=== PATIENT | female | born 1965 | race Caucasian/White ===

== ENCOUNTER → 2018-02-01 16:20 | Outpatient (CLI) | payer MEDICAID, SELFPAY ==
--- NOTE | 2018-02-01 16:30 | RAD_ITS ---
STUDY: X-RAY - CERVICAL SPINE REASON FOR EXAM: Female, 52 years old. Patient fell. TECHNIQUE: 6 view(s) of the cervical spine were obtained. COMPARISON: None FINDINGS: Normal anterior atlantoaxial articulation. Normal odontoid process. Normal cervical lordosis. Narrowing of the C5-C6, C6-C7 disc spaces with narrowing of the left intervertebral foramen at the C6-C7 level. No acute fractures The soft tissue structures are unremarkable. RAD/Cerv Spine 4 or 5 Views IMPRESSION: Intervertebral osteochondrosis at C5-C6 and C6-C7 with an uncinate spur encroaching on the left intervertebral foramen at the C6-C7 level. No fracture Electronically Signed: Daryl Velez, at 3:39 EDT Tel , Service support ,
--- NOTE | 2018-02-01 16:37 | RAD_ITS ---
STUDY: X-RAY - LUMBAR SPINE REASON FOR EXAM: Female, 52 years old. Patient fell TECHNIQUE: 6 view(s) of the lumbar spine were obtained. COMPARISON: None FINDINGS: There is a mild lumbar scoliosis with convexity to the right. There are no acute fractures or dislocations and minimal disc space narrowing at L3-4 and L4-5. The surrounding soft tissues are within normal limits. RAD/L/S Spine Min 4 Views IMPRESSION: Minimal degenerative changes of the L3-4 and L4-5 disc space levels. No fractures Electronically Signed: Daryl Velez, at 3:43 EDT Tel , Service support ,
== END ==
PROVIDERS: Family Provider Internal Medicine; PCP Internal Medicine; Visit Provider Chiropractor
DX: S33.5XXA Sprain of ligaments of lumbar spine, initial encounter (principal); S13.4XXA Sprain of ligaments of cervical spine, initial encounter
CPT/HCPCS: 72050; 72110

== ENCOUNTER 2019-09-28 14:00 | Outpatient (RCR) | payer MEDICAID, SELFPAY ==
--- NOTE | 2019-09-04 09:08 | HP.OTEVAL_ITS ---
Patient's Visit Information KARISSA THOMPSON is a 54 year old F, referred to Occupational Therapy by Nolan Falk Jr., MD, with a diagnosis of rheumatoid arthritis. Date of Evaluation: 08/31/19 Occupational Therapist: Ladonna De Jesus, TIN/Andry, CHT - Subjective Subjective: This 54 year old female was see for OT eval with new dx of RA on 2018. Pt states left thumb is more painful in the last 2-3 weeks. 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 - ADLs Kitchen: Chop with knife, Peel fruits & vegetables, Open jars, Open bottle caps Household: Sweep/mop, Wash windows - Pain bilateral hands 0 Pain Intensity Range: 0, 4 - ROM Opposition: right 10 left 10 ROM Comments: pt demo full composite fist bilateral hands- - Strength [place] Operator: right 35# left 18# painful with resistive testing Lateral Pinch: right 10# left 10# Tripod Pinch: right 10# left 8# Strength Comments: pain with left thumb resistive testing - Sensation Sensation Comments: denies - Quick DASH-Disab of Arm,Shoulder& Hand Quick DASH Score: 43.3325 - Goals Goal:: pt will report pain no greater than 2/10 with use of bilateral hands with ADLs and IADLS with ad. eq. and use of joint protection by d/c Goal:: Pt will demonstrate understanding of joint protection and adaptive equipment to decrease joint stress while performing ADL and IADLs tasks by d/c Goal:: PT will demo understanding of using modalities as heat, or cool water to mtg her symptoms of pain and sorness of her joints, pt given information on home products as paraffin bath or micowaveable rice pack. pt demo understanding by end of 1st session - Rehabilitation General Assessment: Pt demo bilateral hand weakness and limitations with performing her ADls, and IADL tasks. Pt would benefit from skilled OT services 2-3 x week for 3-4 weeks- pt does have a distance to drive and would be willing to attend therapy services 1-2x week for 3-4 weeks. Today therapist ed. pt on joint protection apolonia. as well as work modification. Pt was given handout and demo understanding and agree to POC. Rehabilitation Potential: Good - Anticipated Interventions Anticipated Interventions: A/AAROM/PROM, Strengthening, Modalities, Joint Protection/Energy Conservation, Ergonomic Education, Education re assistive Equipment, Home Program - Visit Plan Frequency: 2-3x /Week Duration: 2-4 Weeks TEXT: Thank you for the opportunity to evaluate your patient. For Medicare and Medicare HMO plans, please review the plan of care and approve it. It will need to be FAXED BACK to us at [phone] for Medicare purposes. Please let me know if there are questions or concerns regarding this plan of care. Physician Signature: Date:
--- NOTE | 2019-09-28 14:24 | HP.OTDCSUM ---
HP - OT D/C Summary It has been my pleasure to treat KARISSA THOMPSON under orders from Nolan Falk Jr., MD, for the diagnosis of rheumatoid arthritis for a total of 7 visit(s). Please see the following information for a summary of their discharge status. - Overall Improvement % Improvement: 30 - Objective Objective/Function: pt has been ed. on joint protection, ad. eq and work modification- pt cont. to have pain that ranges from 2-8/10. Pain is worse with use. 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 left lateral pinch 6# with pain. At this time therapy is rec'd pt to return to for further evaluation. - Goals Patient Goals: Decrease Pain, Use Hand/Wrist/Arm Normally Again Goal:: pt will report pain no greater than 2/10 with use of bilateral hands with ADLs and IADLS with ad. eq. and use of joint protection by d/c Goal:: Pt will demonstrate understanding of joint protection and adaptive equipment to decrease joint stress while performing ADL and IADLs tasks by d/c Goal:: PT will demo understanding of using modalities as heat, or cool water to mtg her symptoms of pain and sorness of her joints, pt given information on home products as paraffin bath or micowaveable rice pack. pt demo understanding by end of 1st session - Plan Plan: D/C - D/C Information Discharge Comments: therapy ed. pt on joint protection, ad. eq. and work modification to decrease joint stress with ADLs and IADLS and work tasks. pt cont. to have pain that prevents her from performing her occupations ind. Due to limited progress therapist rec'd pt return to . Pt d/c at this time If there are questions or concerns regarding this patient's occupational therapy, please fell free to call me at [phone]. Thank you for the referral of this patient. Sincerely, Ladonna De Jesus, OTR/L, CHT
== END 2019-09-28 19:00 | disposition home or self-care (01) ==
LOC: OT 14:00
PROVIDERS: Family Provider Internal Medicine; PCP Internal Medicine; Referring Provider Internal Medicine Rheumatology; Visit Provider Internal Medicine Rheumatology
DX: M05.79 Rheumatoid arthritis with rheumatoid factor of multiple sites without organ or systems involvement (principal); M06.322 Rheumatoid nodule, left elbow; R53.83 Other fatigue; R76.8 Other specified abnormal immunological findings in serum; M54.9 Dorsalgia, unspecified; M89.9 Disorder of bone, unspecified; M94.9 Disorder of cartilage, unspecified; M25.511 Pain in right shoulder; M25.512 Pain in left shoulder; G89.29 Other chronic pain; M75.21 Bicipital tendinitis, right shoulder; M75.22 Bicipital tendinitis, left shoulder; M25.531 Pain in right wrist; M25.532 Pain in left wrist; M79.641 Pain in right hand; M79.642 Pain in left hand; M19.041 Primary osteoarthritis, right hand; M19.042 Primary osteoarthritis, left hand; M51.36 Other intervertebral disc degeneration, lumbar region; M50.30 Other cervical disc degeneration, unspecified cervical region; Z79.1 Long term (current) use of non-steroidal anti-inflammatories (NSAID); Z79.52 Long term (current) use of systemic steroids; Z79.899 Other long term (current) drug therapy
CPT/HCPCS: 97110; 97166; 97530

== ENCOUNTER 2022-12-27 20:05 | Inpatient (IN) | payer MEDICARE, MEDICAID, SELFPAY ==
[2022-12-27 20:06] VITALS: BP 166/86; PULSE 96; RESP 15; TEMP 37.2; O2SAT 98; BMI 34.7
--- NOTE | 2022-12-27 20:36 | EDS_ITS ---
HPI <DANIEL Navarro - Last Filed: 12/27/22 20:55> History of Present Illness Chief Complaint: Abscess Narrative Narrative: 57-year-old female had a pimple in her right pubic area that she popped about 6 days ago. The next day it started to become red and painful. It's been draining bloody fluid. She has had fevers of 100 - 101 ?F over the last few days. She is on methotrexate for history of rheumatoid arthritis. She is not diabetic. [facility] <DANIEL Navarro - Last Filed: 12/27/22 20:55> [facility] Medical History (Updated 12/27/22 @ 21:[address] Rubin Mejia MD) Depression Allergy/AdvReac Type Severity Reaction Status Date / Time amitriptyline AdvReac PT UNSURE Verified 12/27/22 20:11 OF REACTION codeine AdvReac Rash Verified 12/27/22 20:10 sertraline [From Zoloft] AdvReac Upset Verified 12/27/22 20:10 Stomach Social History (System 06/13/19 @ 10:37 by Lakesha Rodney) Smoking Status: Never smoker ROS <DANIEL Navarro - Last Filed: 12/27/22 20:55> ROS ED ROS Narrative Constitutional: Positive for fever, malaise. CVS: Negative for palpitations, chest pain. Respiratory: Negative for shortness of breath. GI: Negative for abdominal pain, nausea, vomiting. Skin: Positive for abscess. Musc: Negative for joint pain, swelling, trauma. Heme: Negative for easy bruising, bleeding, lymphadenopathy. EXAM <DANIEL Navarro - Last Filed: 12/27/22 20:55> Physical Exam Narrative Exam Narrative: CONST: Patient sitting in no acute distress. EYES: Normal inspection. NECK: Normal inspection. RESP: No respiratory distress, CTAB. CVS: Regular rate and rhythm, no murmur, no gallop. ABD: Soft and nontender, no guarding or rebound. SKIN: Right labia majora has soft tissue swelling and is diffusely red. There is a small opening at the superior aspect that drains yellow bloody fluid with palpation. The top feels fluctuant but extending down the labia majora is indurated. The erythema and induration extends all the way back to the perineum onto her right mid-buttock. No necrosis, no crepitus, no lymphangitic streaking. EXTREMITIES: Normal appearance, no pedal edema. NEURO: Oriented x4. PSYCH: Normal affect. Const Vital Signs: 12/27/22 20:06 Temperature 98.9 F Temperature Source Temporal Pulse Rate 96 Respiratory Rate 15 Blood Pressure 166/86 H Blood Pressure Mean 112 Pulse Ox 98 Oxygen Delivery Method Room Air <Dr. Rubin Mejia MD - Last Filed: 12/27/22 21:59> Physical Exam Const Vital Signs: 12/27/22 20:06 Temperature 98.9 F Temperature Source Temporal Pulse Rate 96 Respiratory Rate 15 Blood Pressure 166/86 H Blood Pressure Mean 112 Pulse Ox 98 Oxygen Delivery Method Room Air MDM <DANIEL Navarro - Last Filed: 12/27/22 20:55> MDM MDM Narrative Medical decision making narrative: Patient popped a pimple in her right pubic area and now has developed an abscess in the right labia majora with overlying cellulitis that extends all the way back to the perineum onto the right buttock. She also reports having a fever over the last few days. She appears well and nontoxic. She has unremarkable vital signs and is afebrile here. With the extent of the cellulitis labs and blood cultures will be obtained along with a CT to evaluate the extent of the abscess. She was given a dose of IV Unasyn, morphine, and Zofran. Labs are pending but plan will likely be for admission. Case was signed out to my attending. Differential: Cellulitis, abscess, Fidelia's gangrene Lab Data Attestation: I reviewed the patient's lab results. Labs: Laboratory Results - last 24 hr 12/27/22 12/27/22 20:50 20:50 WBC 16.0 H RBC 4.81 Hgb 14.0 Hct 41.3 MCV 85.9 MCH 29.1 MCHC 33.9 RDW Std Deviation 37.5 RDW Coeff of Kelsy 12.2 Plt Count 254 MPV 9.8 Immature Gran % (Auto) 0.400 Neut % (Auto) 85.2 H Lymph % (Auto) 7.0 L Harper % (Auto) 7.1 Eos % (Auto) 0.1 Baso % (Auto) 0.2 Absolute Neuts (auto) 13.6 H Absolute Lymphs (auto) 1.12 Nucleated RBC % 0 Sodium 133 L Potassium 3.6 Chloride 99 Carbon Dioxide 24.0 Anion Gap 10 BUN 25 H Creatinine 1.28 H Estim Creat Clear Calc 41.87 Est GFR (MDRD) Af Amer 55 L Est GFR (MDRD) Non-Af 46 L BUN/Creatinine Ratio 19.5 Glucose 186 H Calcium 9.2 Radiography Diagnostic Testing: Clinical Impression(s) from Imaging Studies Lower Extremity CT 12/27/22 20:44 IMPRESSION: Medial right buttock soft tissue inflammatory changes and skin thickening suggesting cellulitis. No drainable abscess. Electronically Signed: Hunter Hamm MD at 21:46 EST , <Dr. Rubin Mejia MD - Last Filed: 12/27/22 21:59> [facility] MDM Narrative Medical decision making narrative: Patient popped a pimple in her right pubic area and now has developed an abscess in the right labia majora with overlying cellulitis that extends all the way back to the perineum onto the right buttock. She also reports having a fever over the last few days. She appears well and nontoxic. She has unremarkable vital signs and is afebrile here. With the extent of the cellulitis labs and blood cultures will be obtained along with a CT to evaluate the extent of the abscess. She was given a dose of IV Unasyn, morphine, and Zofran. Labs are pending but plan will likely be for admission. Case was signed out to my attending. Differential: Cellulitis, abscess, Fidelia's gangrene I have personally performed a face to face assessment of the patient and have reviewed the YEIMI Note. I performed a substantive portion of the visit including all aspects of the following. My hernandez findings include: History is [57-year-old female history of rheumatoid arthritis. Had a pimple on her right groin region last week. Expressed pus from that. Initially he thought it was getting better now is more red and swollen. With fever. Reportedly not diabetic.] Exam is [middle-aged female vital signs stable afebrile. She does not look septic or toxic. No distress. H EENT exam unremarkable. Lungs clear. Heart regular rhythm. Abdomen soft nontender. Moving all 4 extremities. Her right groin medial proximal thigh and right buttock is swollen, tender and red consistent with cellulitis. There is no sri pus at this time. Tender to palpation. No subcu air. No crepitance. No gangrene or necrotic skin. She has full range of motion to her right hip. There is no involvement in the medial or distal thigh or lower leg.] Medical Decision Making [patient started on IV Unasyn. Labs been obtained and a CAT scan. She will need admitted. I have already spoken to the hospitalist about admission. The CAT scan does not show any drainable abscess. At this time there no sign of necrotizing fasciitis.] Other additions or changes: [None] History & Record Review Discussion w/independent historian: Patient Additional record(s) reviewed:: Prior inpatient record, Prior outpatient record, Prior ED visit and Prior labs Lab Data Lab results narrative: BC shows elevated white count of 16,000. H&H 14 and 41. Electrolytes sodium 133. Gap of 10 BUN 25 creatinine 1.28. Glucose 186. She has no history of diabetes. CAT scan of the right hip region buttock and soft tissue shows cellulitis and soft tissue swelling per the radiologist and reviewed by me but no drainable abscess. Therefore no I&D will be attempted at this time. Labs: Laboratory Results - last 24 hr 12/27/22 12/27/22 20:50 20:50 WBC 16.0 H RBC 4.81 Hgb 14.0 Hct 41.3 MCV 85.9 MCH 29.1 MCHC 33.9 RDW Std Deviation 37.5 RDW Coeff of Kelsy 12.2 Plt Count 254 MPV 9.8 Immature Gran % (Auto) 0.400 Neut % (Auto) 85.2 H Lymph % (Auto) 7.0 L Harper % (Auto) 7.1 Eos % (Auto) 0.1 Baso % (Auto) 0.2 Absolute Neuts (auto) 13.6 H Absolute Lymphs (auto) 1.12 Nucleated RBC % 0 Sodium 133 L Potassium 3.6 Chloride 99 Carbon Dioxide 24.0 Anion Gap 10 BUN 25 H Creatinine 1.28 H Estim Creat Clear Calc 41.87 Est GFR (MDRD) Af Amer 55 L Est GFR (MDRD) Non-Af 46 L BUN/Creatinine Ratio 19.5 Glucose 186 H Calcium 9.2 Radiography Diagnostic Testing: Clinical Impression(s) from Imaging Studies Lower Extremity CT 12/27/22 20:44 IMPRESSION: Medial right buttock soft tissue inflammatory changes and skin thickening suggesting cellulitis. No drainable abscess. Electronically Signed: Hunter Hamm MD at 21:46 EST Reading Location ID and State: [facility] / [place] , Service support , Management Discussion w/another healthcare provider: Hospitalist Discharge Plan Triage Chief Complaint: Abscess ED Midlevel Provider: Dinora Cameron ED Provider: Rubin Mejia Dx/Rx/DC Orders Clinical Impression: Cellulitis of groin, right, Leukocytosis Primary Care Provider: Christine Zapata Referrals: Christine Zapata MD [Primary Care Provider] - Disposition Disposition: Acute Care Hospital [facility]
--- NOTE | 2022-12-27 20:44 | CT_ITS ---
EXAM: CT RIGHT LOWER EXTREMITY WITHOUT INTRAVENOUS CONTRAST CLINICAL INDICATION: abscess TECHNIQUE: Helically acquired images were obtained of the right lower extremity without intravenous contrast. 2-D reformats were performed by the technologist. This CT exam was performed using one or more of the following dose reduction techniques: automated exposure control, adjustment of the mA and/or kV according to patient size, and/or use of iterative reconstruction technique. This report was created using [employer] report generation technology. CONTRAST: IV 100mL Isovue-370 RADIATION DOSE: CTDIvol = 28.21 mGy, DLP = 1042.72 mGy-cm COMPARISON: None. FINDINGS: BONES/JOINTS: Unremarkable. No acute fracture. No subluxation. Normal alignment. Preservation of the joint space. No sclerotic or destructive changes. SOFT TISSUES: Medial right buttock soft tissue inflammatory changes and skin thickening suggesting cellulitis. No drainable abscess. No soft tissue swelling or gas. No radiopaque foreign body. LYMPH NODES: Right inguinal adenopathy. OTHER FINDINGS: The appendix is visualized and is normal. CT/Extremity Lower WITH Contrast IMPRESSION: Medial right buttock soft tissue inflammatory changes and skin thickening suggesting cellulitis. No drainable abscess. Electronically Signed: Hunter Hamm MD at 21:46 EST ,
[2022-12-27 20:55] LABS: Absolute Lymphocyte Count 1.12 X10^3/uL (0.83-4.51); Absolute Neutrophil Count 13.6 X10^3/uL (2.0-7.7); Basophil# 0.03 X10^3/uL; Basophil% 0.2 % (0-1); Eosinophil# 0.02 X10^3/uL; Eosinophils% 0.1 % (0-5); Hematocrit 41.3 % (37-47); Lymphocyte # 1.12 X10^3/ul (0.83-4.51); Mean Corp Hgb Conc 33.9 g/dL (32-36); Mean Corpuscular Hgb 29.1 pg (27.0-32.0); Mean Corpuscular Volume 85.9 fL (81-99); Mean Platelet Vol. 9.8 fl (6.2-12.0); Monocyte# 1.13 X10^3/uL; Monocyte% 7.1 % (0-10); NRBC Flagged by Analyzer 0 % (0-5); Neutrophil # 13.59 X10^3/uL (2.7-7.7); Neutrophil % 85.2 % (47-70); Platelet Count 254 K/mm3 (150-450); RBC Distribution Width CV 12.2 % (11.6-14.6); RBC Distribution Width SD 37.5 fl (35.1-43.9); Red Blood Count 4.81 M/mm3 (4.2-5.4)
[2022-12-27] MEDS: 0.9% Normal Saline 1,000 ML 999 ML IV (20:59)
[2022-12-27] MEDS: Morphine 4 MG/ML Syringe IV (20:59)
[2022-12-27] MEDS: Ondansetron 4 MG/2 ML Vial IV (20:59)
[2022-12-27 21:08] LABS: Anion Gap 10 (5-15); BUN 25 mg/dL (7-18); BUN/Creat Ratio 19.5 RATIO (10-20); Calcium,Total 9.2 mg/dL (8.5-10.1); Chloride 99 mmol/L (98-107); Creatinine, Serum 1.28 mg/dL (0.55-1.02); EST Glomerular Filtration Rate 46 mL/min (>60); Est Glom Filt Rate - Afr Amer 55 mL/min (>60); Estimated Creatinine Clearance 41.87 ml/min; Glucose 186 mg/dL (74-106); Potassium 3.6 mmol/L (3.5-5.1); Sodium Level 133 mmol/L (136-145)
[2022-12-27] MEDS: Lidocaine 1% (20 ml mdv) 20 ML Vial 10 ML INFILT (21:25)
--- NOTE | 2022-12-27 22:01 | PCM.HP.STD ---
HPI - General General Date of Admission: 12/27/22 Date of Service: 12/27/22 Chief Complaint: swelling of right HPI Narrative KARISSA THOMPSON, is a 57 F with a significant history of rheumatoid arthritis on methotrexate; and degenerative disc disease of the cervical and lower back areas who presents to the emergency department with swelling of her right medial hip. Patient reported about 5 days ago she noticed a pimple at the right medial hip. She squeezed opened the pimple. The next day she began to have fatigue, fever (with highest temperature of 102 Fahrenheit); chills; body aches; diarrhea (which has not resolved). She had anorexia but that has improved. Also she has erythema and pain at the right medial hip. [facility] Medical History Anxiety Depression Home Medications bupropion HCl 150 mg 24 hr tablet, extended release 150 mg PO DAILY Check with primary doctor 12/27/22 [History Last Taken 12/24/22] cholecalciferol (vitamin D3) 25 mcg (1,000 unit) tablet 25 mcg PO DAILY Check with primary doctor 12/27/22 [History Last Taken 12/24/22] folic acid 1 mg tablet 1 mg PO DAILY Check with primary doctor 12/27/22 [History Last Taken 12/24/22] methotrexate sodium 2.5 mg tablet 22.5 mg PO QWEEK Check with primary doctor 12/27/22 [History Last Taken 12/24/22] omeprazole 40 mg capsule,delayed release 40 mg PO DAILY Check with primary doctor 12/27/22 [History Last Taken 12/24/22] paroxetine HCl 40 mg tablet 40 mg PO DAILY Check with primary doctor 12/27/22 [History Last Taken 12/24/22] Allergy/AdvReac Type Severity Reaction Status Date / Time amitriptyline AdvReac PT UNSURE Verified 12/27/22 20:11 OF REACTION codeine AdvReac Rash Verified 12/27/22 20:10 sertraline [From Zoloft] AdvReac Upset Verified 12/27/22 20:10 Stomach Family History Other Diabetes Heart disease Surgical History Hx of cholecystectomy Social History Smoking Status: Never smoker ROS ROS Narrative Pertinent positives and pertinent negatives as noted in HPI. All other systems were reviewed and are negative Vital Signs Vital Signs Vital Signs: 12/27/22 20:06 Temperature 98.9 F Temperature Source Temporal Pulse Rate 96 Respiratory Rate 15 Blood Pressure 166/86 H Blood Pressure Mean 112 Pulse Ox 98 Oxygen Delivery Method Room Air Weight Weight: 91.943 kg Body Mass Index (BMI) 34.7 Physical Exam Narrative Physical exam: General: Well-nourished, well-developed. Head: Normocephalic, atraumatic, no tenderness Eyes: Vision is grossly intact. EOMI ENT, no trauma, moist mucous membranes, no rhinorrhea Neck: Nontender, No thyromegaly. CVS: Regular rate and rhythm. S1-S2 present. No murmur, gallop or rub. Respiratory : clear to auscultation bilaterally, chest wall nontender, no wheezing Abdomen: Soft, nontender, nondistended, normal bowel sounds, no masses : Vaginal area without any erythema, swelling or induration. Back: Nontender, no CVA tenderness. Extremities: Nontender full range of motion, no trauma Skin: Erythema and induration at right medial thigh extending to right gluteal area. No erythema and induration at left medial thigh. Neuro: Alert, oriented, cranial nerves II through XII grossly intact. Psychiatry: Normal mood. Normal affect. Not depressed. Not anxious. Results Lab / Micro Data Result Diagrams: 12/27/22 20:50 12/27/22 20:50 Labs: Laboratory Results - last 24 hr 12/27/22 20:50: WBC 16.0 H, RBC 4.81, Hgb 14.0, Hct 41.3, MCV 85.9, MCH 29.1, MCHC 33.9, RDW Std Deviation 37.5, RDW Coeff of Kelsy 12.2, Plt Count 254, MPV 9.8, Immature Gran % (Auto) 0.400, Neut % (Auto) 85.2 H, Lymph % (Auto) 7.0 L, [place] % (Auto) 7.1, Eos % (Auto) 0.1, Baso % (Auto) 0.2, Absolute Neuts (auto) 13.6 H, Absolute Lymphs (auto) 1.12, Nucleated RBC % 0 12/27/22 20:50: Sodium 133 L, Potassium 3.6, Chloride 99, Carbon Dioxide 24.0, Anion Gap 10, BUN 25 H, Creatinine 1.28 H, Estim Creat Clear Calc 41.87, Est GFR (MDRD) Af Amer 55 L, Est GFR (MDRD) Non-Af 46 L, BUN/Creatinine Ratio 19.5, Glucose 186 H, Calcium 9.2 Radiology Impression Lower Extremity CT 12/27/22 20:44 IMPRESSION: Medial right buttock soft tissue inflammatory changes and skin thickening suggesting cellulitis. No drainable abscess. Electronically Signed: Hunter Hamm MD at 21:46 EST , Assessment & Plan Assessment/Plan (1) Cellulitis of groin, right: (2) Leukocytosis: PLAN: Plan Cellulitis of right groin Impression of lower extremity CT by radiologist: Medial right buttock soft tissue inflammatory changes and skin thickening suggesting cellulitis. No drainable abscess. Lower extremity CT was visualized independent interpreted I agree with the interpretation. Discussed the case with general surgery who will follow. Initially Unasyn ordered. By general surgery recommendation will add vancomycin to regimen. Tylenol and oxycodone as needed for pain. Bowel protocol and antiemetics in place. CBC reviewed showed white count of 16,000. Trend. CKD stage IIIa Creatinine on presentation was 1.28. Review of community records shows stable creatinine. Of note on 06/25/2022 her creatinine was 1.05. On 04/07/2022 creatinine was 1.1 and on 10/07/2022 creatinine was 1.16. Counseled records reviewed shows blood pressure has stable creatinine. Stable Hyponatremia: mild with sodium of 133 on presentation. Glucose is only mildly elevated. Trend DVT prophylaxis: Subcutaneous Lovenox ordered. Charges/Coding Visit Charges Inpatient E&M: 48500 Init Hosp L3
[2022-12-27 22:21] VITALS: BP 138/78; PULSE 8; RESP 16; TEMP 36.6; O2SAT 97
[2022-12-27 22:32] VITALS: BMI 36.5
[2022-12-27 22:46] VITALS: BP 119/66; PULSE 75; RESP 17; TEMP 36.6; O2SAT 96
--- NOTE | 2022-12-27 23:36 | PCM.RX.CS ---
Consult Pharmacy has been consulted to manage selected antiobiotic: Vancomycin Type of Consult: New start Suspected Infection: Skin/Soft tissue Prior Doses of Antibiotics Received/Current Regimen: Medications Vancomycin HCl 2,000 mg/ (Sodium Chloride) 540 mls @ 250 mls/hr IV X1 ONE Stop: 12/28/22 01:09 Last Admin: 12/27/22 23:22 Dose: 250 mls/hr Vancomycin HCl (Vancomycin) 1,000 mg in 200 mls @ 200 mls/hr IV Q12H LUZ MARIA Labs: Sodium 133 mmol/L (136-145) L 12/27/22 20:50 Potassium 3.6 mmol/L (3.5-5.1) 12/27/22 20:50 Chloride 99 mmol/L (98-107) 12/27/22 20:50 Carbon Dioxide 24.0 mmol/L (21.0-32.0) 12/27/22 20:50 Anion Gap 10 (5-15) 12/27/22 20:50 BUN 25 mg/dL (7-18) H 12/27/22 20:50 Creatinine 1.28 mg/dL (0.55-1.02) H 12/27/22 20:50 Est GFR (MDRD) Af Amer 55 mL/min (>60) L 12/27/22 20:50 Est GFR (MDRD) Non-Af 46 mL/min (>60) L 12/27/22 20:50 BUN/Creatinine Ratio 19.5 RATIO (10-20) 12/27/22 20:50 Glucose 186 mg/dL (74-106) H 12/27/22 20:50 Weight used for dosin.5 kg Estimated Creatinine Clearance: 50.6 Goal Trough: 15-20 mcg/mL Pharmacy Plan for Drug Dosing: Pharmacy Service will continue to monitor and adjust dosing as required. Follow-Up Labs: Trough Vancomycin Labs to be done on [date and time ordered]: 12/29/22 @1100
[2022-12-28 01:12] VITALS: O2SAT 97
[2022-12-28 04:46] VITALS: BP 103/51; PULSE 72; RESP 16; TEMP 37.1; O2SAT 97
[2022-12-28 06:30] LABS: Absolute Lymphocyte Count 1.16 X10^3/uL (0.83-4.51); Basophil# 0.02 X10^3/uL; Basophil% 0.2 % (0-1); Eosinophil# 0.09 X10^3/uL; Eosinophils% 0.9 % (0-5); Hematocrit 34.1 % (37-47); Hemoglobin 11.5 g/dL (12.0-15.0); Lymphocyte # 1.16 X10^3/ul (0.83-4.51); Lymphocyte % 11.3 % (19-41); Mean Corp Hgb Conc 33.7 g/dL (32-36); Mean Corpuscular Hgb 29.1 pg (27.0-32.0); Mean Corpuscular Volume 86.3 fL (81-99); Mean Platelet Vol. 10.2 fl (6.2-12.0); Monocyte# 1.03 X10^3/uL; NRBC Flagged by Analyzer 0 % (0-5); Neutrophil # 7.96 X10^3/uL (2.7-7.7); Neutrophil % 77.3 % (47-70); Platelet Count 190 K/mm3 (150-450); RBC Distribution Width CV 12.2 % (11.6-14.6); RBC Distribution Width SD 38.2 fl (35.1-43.9); Red Blood Count 3.95 M/mm3 (4.2-5.4); White Blood Count 10.3 K/mm3 (4.4-11.0)
[2022-12-28 06:57] LABS: Anion Gap 7 (5-15); BUN 18 mg/dL (7-18); BUN/Creat Ratio 19.8 RATIO (10-20); Calcium,Total 8.2 mg/dL (8.5-10.1); Chloride 104 mmol/L (98-107); Creatinine, Serum 0.91 mg/dL (0.55-1.02); EST Glomerular Filtration Rate 68 mL/min (>60); Est Glom Filt Rate - Afr Amer 82 mL/min (>60); Estimated Creatinine Clearance 53.95 ml/min; Glucose 106 mg/dL (74-106); Potassium 3.9 mmol/L (3.5-5.1); Sodium Level 136 mmol/L (136-145)
--- NOTE | 2022-12-28 07:09 | CON.PCM.SX_ITS ---
Assessment & Plan Assessment/Plan (1) Abscess, gluteal, right: PLAN: Plan We will plan for incision and drainage at bedside. Patient does have a small necrotic area about 3 mm in size. Discussed procedure including risk/benefits with patient she was agreeable to proceed. Patient is aware we may need further surgery in the future depending if this improves with just the I&D or if it begins to look worse patient may need to go to OR for incision and drainage or debridement. We will also add clindamycin to the antibiotics with the vancomycin/Zosyn. We will also obtain wound cultures during I&D. Kathy Anderson M.D. Pager: [phone] [facility] [address] [place] [address], Outpatient Pavilion, [address] [place] [address] Office: [phone] HPI Consult Data Date of Consult: 12/28/22 HPI Narrative HPI Narrative: KARISSA THOMPSON, is a 57 F who presents due to right gluteal cellulitis/pain. Patient states that she initially noticed it on Wednesday and was just a little pimple and then did continue to get worse. Patient CT abdomen pelvis did not show any obvious fluid collection in this area. Patient did have cellulitis. Patient had a white blood count of 16 on admit. Patient was started on Zosyn and vancomycin IV in the ER. Patient denies ever having previous abscesses. [facility] Medical History Anxiety Depression Home Medications bupropion HCl 150 mg 24 hr tablet, extended release 150 mg PO DAILY Check with primary doctor 12/27/22 [History Last Taken 12/24/22] cholecalciferol (vitamin D3) 25 mcg (1,000 unit) tablet 25 mcg PO DAILY Check with primary doctor 12/27/22 [History Last Taken 12/24/22] folic acid 1 mg tablet 1 mg PO DAILY Check with primary doctor 12/27/22 [History Last Taken 12/24/22] methotrexate sodium 2.5 mg tablet 22.5 mg PO QWEEK Check with primary doctor 12/27/22 [History Last Taken 12/24/22] omeprazole 40 mg capsule,delayed release 40 mg PO DAILY Check with primary doctor 12/27/22 [History Last Taken 12/24/22] paroxetine HCl 40 mg tablet 40 mg PO DAILY Check with primary doctor 12/27/22 [History Last Taken 12/24/22] Allergy/AdvReac Type Severity Reaction Status Date / Time amitriptyline AdvReac PT UNSURE Verified 12/27/22 20:11 OF REACTION codeine AdvReac Rash Verified 12/27/22 20:10 sertraline [From Zoloft] AdvReac Upset Verified 12/27/22 20:10 Stomach Family History Other Diabetes Heart disease Surgical History Hx of cholecystectomy Social History Smoking Status: Never smoker Physical Exam Const alert, oriented x3 and no apparent distress General Appearance: cooperative HEENT normocephalic Resp normal respiratory effort Cardio Rate: regular rate GI soft to palpation, non-tender and non-distended GI Narrative: Right medial gluteal/perineum area: Small area with necrotic tissue about 3 mm in size anterior/medial. Surrounding area of firm and erythematous, tender for most of the inferior right medial gluteal Extremity normal to inspection Skin Skin Narrative: See GI?right medial gluteal/perineal area Neuro CN's II-XII intact bilaterally Psych mental status grossly normal Lab / Micro Data Result Diagrams: 12/28/22 05:30 12/28/22 05:30 Labs: Laboratory Results - last 24 hr 12/27/22 20:50: WBC 16.0 H, RBC 4.81, Hgb 14.0, Hct 41.3, MCV 85.9, MCH 29.1, MCHC 33.9, RDW Std Deviation 37.5, RDW Coeff of Kelsy 12.2, Plt Count 254, MPV 9.8, Immature Gran % (Auto) 0.400, Neut % (Auto) 85.2 H, Lymph % (Auto) 7.0 L, Upson % (Auto) 7.1, Eos % (Auto) 0.1, Baso % (Auto) 0.2, Absolute Neuts (auto) 13.6 H, Absolute Lymphs (auto) 1.12, Nucleated RBC % 0 12/27/22 20:50: Sodium 133 L, Potassium 3.6, Chloride 99, Carbon Dioxide 24.0, Anion Gap 10, BUN 25 H, Creatinine 1.28 H, Estim Creat Clear Calc 41.87, Est GFR (MDRD) Af Amer 55 L, Est GFR (MDRD) Non-Af 46 L, BUN/Creatinine Ratio 19.5, Glucose 186 H, Calcium 9.2 12/28/22 05:30: WBC 10.3, RBC 3.95 L, Hgb 11.5 L, Hct 34.1 L, MCV 86.3, MCH 29.1, MCHC 33.7, RDW Std Deviation 38.2, RDW Coeff of Kelsy 12.2, Plt Count 190, MPV 10.2, Immature Gran % (Auto) 0.300, Neut % (Auto) 77.3 H, Lymph % (Auto) 11.3 L, Upson % (Auto) 10.0, Eos % (Auto) 0.9, Baso % (Auto) 0.2, Absolute Neuts (auto) 8.0 H, Absolute Lymphs (auto) 1.16, Nucleated RBC % 0 12/28/22 05:30: Sodium 136, Potassium 3.9, Chloride 104, Carbon Dioxide 25.0, Anion Gap 7, BUN 18, Creatinine 0.91, Estim Creat Clear Calc 53.95, Est GFR (MDRD) Af Amer 82, Est GFR (MDRD) Non-Af 68, BUN/Creatinine Ratio 19.8, Glucose 106, Calcium 8.2 L Radiology Impression Lower Extremity CT 12/27/22 20:44 IMPRESSION: Medial right buttock soft tissue inflammatory changes and skin thickening suggesting cellulitis. No drainable abscess. Electronically Signed: Hunter Hamm MD at 21:46 EST , Charges/Coding Visit Charges Inpatient E&M: 98405 Init Hosp L3
[2022-12-28] MEDS: Clindamycin 900 MG/50 ML BAG 75 MG IV (07:52)
[2022-12-28] MEDS: Acetaminophen 325 MG Tablet 650 MG PO ×2 (08:04→13:35)
[2022-12-28] MEDS: oxyCODONE 5 MG Tablet PO ×2 (08:05→13:34)
[2022-12-28] MEDS: Folic Acid 1 MG Tablet PO (08:05)
[2022-12-28 08:12] VITALS: BP 121/70; PULSE 80; RESP 16; TEMP 36.8; O2SAT 98
--- NOTE | 2022-12-28 09:04 | PN.HOSP_ITS ---
Reason for Visit Reason for Visit: Diagnoses Elevated white blood cell count, unspecified (12/27/22) Cellulitis of groin (12/27/22) Subjective Subjective Patient is a 57 who presented with significant swelling involving the right groin Objective Data Objective Data Vital Signs: Vital Signs Temp Pulse Resp BP Pulse Ox O2 Del Method 98.3 F 80 16 121/70 H 98 Room Air 12/28/22 08:12 12/28/22 08:12 12/28/22 08:12 12/28/22 08:12 12/28/22 08:12 12/28/22 08:12 Oxygen Delivery Method Room Air Weight: 90.5 kg Body Mass Index (BMI) 36.5 Intake & Output: Intake and Output for Last 24 Hours 12/26/22 12/27/22 12/28/22 23:59 23:59 23:59 Intake Total 1112 / 1112 1252 / 1252 Balance 1112 / 1112 1252 / 1252 Lab / Micro Data Result Diagrams: 12/28/22 05:30 12/28/22 05:30 Labs: Laboratory Results - last 24 hr 12/27/22 20:50: WBC 16.0 H, RBC 4.81, Hgb 14.0, Hct 41.3, MCV 85.9, MCH 29.1, MCHC 33.9, RDW Std Deviation 37.5, RDW Coeff of Kelsy 12.2, Plt Count 254, MPV 9.8, Immature Gran % (Auto) 0.400, Neut % (Auto) 85.2 H, Lymph % (Auto) 7.0 L, [place] % (Auto) 7.1, Eos % (Auto) 0.1, Baso % (Auto) 0.2, Absolute Neuts (auto) 13.6 H, Absolute Lymphs (auto) 1.12, Nucleated RBC % 0 12/27/22 20:50: Sodium 133 L, Potassium 3.6, Chloride 99, Carbon Dioxide 24.0, Anion Gap 10, BUN 25 H, Creatinine 1.28 H, Estim Creat Clear Calc 41.87, Est GFR (MDRD) Af Amer 55 L, Est GFR (MDRD) Non-Af 46 L, BUN/Creatinine Ratio 19.5, Glucose 186 H, Calcium 9.2 12/28/22 05:30: WBC 10.3, RBC 3.95 L, Hgb 11.5 L, Hct 34.1 L, MCV 86.3, MCH 29.1, MCHC 33.7, RDW Std Deviation 38.2, RDW Coeff of Kelsy 12.2, Plt Count 190, MPV 10.2, Immature Gran % (Auto) 0.300, Neut % (Auto) 77.3 H, Lymph % (Auto) 11.3 L, [place] % (Auto) 10.0, Eos % (Auto) 0.9, Baso % (Auto) 0.2, Absolute Neuts (auto) 8.0 H, Absolute Lymphs (auto) 1.16, Nucleated RBC % 0 12/28/22 05:30: Sodium 136, Potassium 3.9, Chloride 104, Carbon Dioxide 25.0, Anion Gap 7, BUN 18, Creatinine 0.91, Estim Creat Clear Calc 53.95, Est GFR (MDRD) Af Amer 82, Est GFR (MDRD) Non-Af 68, BUN/Creatinine Ratio 19.8, Glucose 106, Calcium 8.2 L Radiography Diagnostic Testing: Radiology Impression Lower Extremity CT 12/27/22 20:44 IMPRESSION: Medial right buttock soft tissue inflammatory changes and skin thickening suggesting cellulitis. No drainable abscess. Electronically Signed: Hunter Hamm MD at 21:46 EST Reading Location ID and State: [facility] / [place] , Service support , Physical Exam Narrative GENERAL: cooperative HEENT: Atraumatic; normocephalic EYES; Anicteric, Normal Conjunctiva NECK; supple, normal thyroid, RESPIRATORY: Diminished to auscultation CARDIOVASCULAR: Regular S1 S2, GI: soft, normoactive bowel sounds, : No Renal angle tenderness; EXTREMITIES: No edema, no clubbing, MUSCULOSKELETAL: no muscle wasting NEURO: Awake; no lateralizing signs. SKIN: Area of induration involving the medial aspect of the right gluteal area with tenderness PSYCH; Flat affect Assessment & Plan Assessment/Plan (1) Cellulitis of groin, right: (2) Leukocytosis: PLAN: Plan Patient is a 57 who presented with significant swelling involving the right groin 1. Right gluteal abscess ? CT of the pelvis obtained on admission demonstrated medial right buttock soft tissue inflammatory changes and skin thickening suggesting cellulitis. No drainable abscess. Patient started on broad-spectrum antibiotic therapy with Unasyn with vancomycin added.. Consult was placed to surgery with plans for patient to undergo I&D 2. Acute kidney injury ? Creatinine on admission was 1.23 improved to 0.91 with IV fluids 3. Mild hyponatremia ? Improved with rehydration 4. GERD ? Patient is on PPI continue 5. Depression with anxiety ? Patient is on bupropion as well as paroxetine did continue 6. Rheumatoid arthritis ? Patient is on methotrexate 22.5 mg p.o. q. weekly plan is to resume following her discharge 7. Class II obesity with BMI of 36.5 ? Weight loss advised 8. DVT prophylaxis - On enoxaparin Time spent in the patient's overall evaluation,decision-making process, review of diagnostic data, adjustment of management, discussion with other providers, nursing nursing and ancillary staff involved in patient's care documentation, 55 Minutes Charges/Coding Visit Charges Inpatient E&M: 06766 [facility] Hosp L3
--- NOTE | 2022-12-28 10:49 | PCM.OPRPT ---
Report of Operation Date of Procedure: 12/28/22 Pre-Operative Diagnosis: right gluteal abscess Post-Operative Diagnosis: same Surgery/Procedure Performed:: incision and drainage of right gluteal abscess Surgeon: Kathy Anderson Type of Anesthesia: Local Specimen's removed: fluid for deep cx Description of Procedure: Timeout was completed verifying correct patient, procedure, site, positioning, and special equipment prior to beginning procedure. Informed consent obtained. The right medial gluteal area was prepped draped usual sterile fashion with Betadine. Local anesthesia of lidocaine with epinephrine total of 4 cc was infiltrated in this area. The necrotic tissue was removed from the small opening. Incision was made with the 11 blade scalpel. Foul-smelling fluid was cultured/drained. Wound was irrigated with saline 20 cc x 3. Wound was packed with half-inch iodoform packing tape. 4 x 4's were placed over the top. Patient tolerated procedure well. Complications none
[2022-12-28] MEDS: Lidocaine 1% /Epi 1:100 (20ml) 20 ML Vial INFILT (11:05)
[2022-12-28] MEDS: Vancomycin IV 1,000 MG/200 ML BAG 200 MG IV ×2 (11:06→22:26)
[2022-12-28] MEDS: Enoxaparin 40 MG/0.4 ML Syringe SC (11:08)
[2022-12-28] MEDS: Pantoprazole Sodium 40 MG Tablet PO (11:09)
[2022-12-28] MEDS: Paroxetine 20 MG Tablet 40 MG PO (11:09)
[2022-12-28] MEDS: Cholecalciferol (VIT D3) 25 MCG TABLET (1,000 UNITS) PO (11:10)
[2022-12-28] MEDS: buPROPion (XL) 150 MG TABLET.XL PO (11:10)
[2022-12-28] MEDS: Clindamycin 600 MG/50 ML BAG 100 MG IV ×2 (12:28→17:31)
--- NOTE | 2022-12-28 14:30 | CASEMGMT ---
LELA YANG Assessment: Face to Face with pt for initial transition planning/care coordination assessment. RN CELIA introduced self and role at [facility], pt voices understanding and consents to assessment. Pt is A/O x4 and answers all questions appropriately at this time. Pt sitting up in bed in no distress. Care providers, pharmacy, and demographics verified/updated. Admitting Dx: abscess of labia majora with cellulitis PCP:Jodi Specialists:kisha Falk Pharmacy: [facility] Insurance: [facility] Prescription Benefit: yes LNOK: Kelli Thomson, mother Living Arrangements: Pt lives with brother and nephew in a two story home with 2 steps to enter without a rail. Pt reports she is I in ADL's and denies concerns at home. Transportation: Pt drives self and denies concerns with transportation. DME/HHC/SNF: Pt has access to a rollator and transport w/c but does not use. Pt denies hx of HHC or SNF stays. Pt states no concerns with going home at time of dc. Discussed cg options if pt should need wound care, she states her nephew's is a [employer] and most likely would be willing to do. Pt states no further concerns/needs. CM to follow. Advised pt to ask CM if any further question/concerns/needs arise, voices understanding. Pt Goal: Home Plan: Home, follow for any wound care needs.
[2022-12-28 15:55] VITALS: BP 111/70; PULSE 73; RESP 18; TEMP 36.5; O2SAT 94
[2022-12-28 20:48] VITALS: BP 98/58; PULSE 71; RESP 16; TEMP 36.7; O2SAT 98
[2022-12-29] MEDS: Clindamycin 600 MG/50 ML BAG 100 MG IV ×2 (00:05→06:45)
[2022-12-29] MEDS: Acetaminophen 325 MG Tablet 650 MG PO ×3 (01:45→21:42)
[2022-12-29] MEDS: oxyCODONE 5 MG Tablet PO (01:45)
[2022-12-29 05:21] VITALS: BP 108/56; PULSE 74; RESP 16; TEMP 36.7; O2SAT 95
[2022-12-29 06:54] LABS: Absolute Neutrophil Count 6.1 X10^3/uL (2.0-7.7); Basophil# 0.03 X10^3/uL; Basophil% 0.4 % (0-1); Eosinophil# 0.21 X10^3/uL; Eosinophils% 2.5 % (0-5); Hematocrit 36.5 % (37-47); Hemoglobin 12.1 g/dL (12.0-15.0); Lymphocyte % 15.6 % (19-41); Mean Corp Hgb Conc 33.2 g/dL (32-36); Mean Corpuscular Hgb 29.5 pg (27.0-32.0); Mean Platelet Vol. 9.8 fl (6.2-12.0); Monocyte# 0.66 X10^3/uL; Monocyte% 7.9 % (0-10); NRBC Flagged by Analyzer 0 % (0-5); Neutrophil # 6.08 X10^3/uL (2.7-7.7); Neutrophil % 73.2 % (47-70); Platelet Count 210 K/mm3 (150-450); RBC Distribution Width CV 12.4 % (11.6-14.6); RBC Distribution Width SD 39.9 fl (35.1-43.9); White Blood Count 8.3 K/mm3 (4.4-11.0)
[2022-12-29 07:31] LABS: Anion Gap 5 (5-15); BUN 16 mg/dL (7-18); BUN/Creat Ratio 16.6 RATIO (10-20); Calcium,Total 8.7 mg/dL (8.5-10.1); Chloride 107 mmol/L (98-107); Creatinine, Serum 0.97 mg/dL (0.55-1.02); EST Glomerular Filtration Rate 63 mL/min (>60); Est Glom Filt Rate - Afr Amer 76 mL/min (>60); Estimated Creatinine Clearance 50.61 ml/min; Glucose 101 mg/dL (74-106); Potassium 4.1 mmol/L (3.5-5.1); Sodium Level 139 mmol/L (136-145)
--- NOTE | 2022-12-29 07:33 | PN.HOSP_ITS ---
Reason for Visit Reason for Visit: Diagnoses Elevated white blood cell count, unspecified (12/27/22) Cutaneous abscess of buttock (12/27/22) Cellulitis of groin (12/27/22) Subjective Subjective Patient underwent?incision and drainage of right gluteal abscess by Dr. Anderson on 12/28/2022 under local anesthesia Objective Data Objective Data Vital Signs: Vital Signs Temp Pulse Resp BP Pulse Ox O2 Del Method 98.0 F 74 16 108/56 L 95 Room Air 12/29/22 05:21 12/29/22 05:21 12/29/22 05:21 12/29/22 05:21 12/29/22 05:21 12/29/22 05:21 Oxygen Delivery Method Room Air Weight: 90.5 kg Body Mass Index (BMI) 36.5 Intake & Output: Intake and Output for Last 24 Hours 12/27/22 12/28/22 12/29/22 23:59 23:59 23:59 Intake Total 1112 / 1112 2826 / 2826 1062 / 1062 Balance 1112 / 1112 2826 / 2826 1062 / 1062 Lab / Micro Data Result Diagrams: 12/29/22 06:40 12/29/22 06:40 Labs: Laboratory Results - last 24 hr 12/29/22 06:40: WBC 8.3, RBC 4.10 L, Hgb 12.1, Hct 36.5 L, MCV 89.0, MCH 29.5, MCHC 33.2, RDW Std Deviation 39.9, RDW Coeff of Eklsy 12.4, Plt Count 210, MPV 9.8, Immature Gran % (Auto) 0.400, Neut % (Auto) 73.2 H, Lymph % (Auto) 15.6 L, Dickens % (Auto) 7.9, Eos % (Auto) 2.5, Baso % (Auto) 0.4, Absolute Neuts (auto) 6.1, Absolute Lymphs (auto) 1.30, Nucleated RBC % 0 12/29/22 06:40: Sodium 139, Potassium 4.1, Chloride 107, Carbon Dioxide 27.0, Anion Gap 5, BUN 16, Creatinine 0.97, Estim Creat Clear Calc 50.61, Est GFR (MDRD) Af Amer 76, Est GFR (MDRD) Non-Af 63, BUN/Creatinine Ratio 16.6, Glucose 101, Calcium 8.7, Magnesium 2.0 Micro: Microbiology 12/28/22 10:50 Aspirate - Groin Gram Stain - Final Physical Exam Narrative GENERAL: cooperative HEENT: Atraumatic; normocephalic EYES; Anicteric, Normal Conjunctiva NECK; supple, normal thyroid, RESPIRATORY: Diminished to auscultation CARDIOVASCULAR: Regular S1 S2, GI: soft, normoactive bowel sounds, : No Renal angle tenderness; EXTREMITIES: No edema, no clubbing, MUSCULOSKELETAL: no muscle wasting NEURO: Awake; no lateralizing signs. SKIN: Area of induration involving the medial aspect of the right gluteal area with tenderness PSYCH; Flat affect Assessment & Plan Assessment/Plan (1) Cellulitis of groin, right: (2) Leukocytosis: PLAN: Plan Patient is a 57 who presented with significant swelling involving the right groin 1. Right gluteal abscess ? CT of the pelvis obtained on admission demonstrated medial right buttock soft tissue inflammatory changes and skin thickening suggesting cellulitis. No drai nable abscess. Patient started on broad-spectrum antibiotic therapy with Unasyn with vancomycin added.. Consult was placed to surgery with plans for patient to undergo I&D 12/29/2022; Patient underwent?incision and drainage of right gluteal abscess by Dr. Anderson on 12/28/2022 under local anesthesia. Cultures sent 2. Acute kidney injury ? Creatinine on admission was 1.23 improved to 0.91 with IV fluids 3. Mild hyponatremia ? Improved with rehydration 4. GERD ? Patient is on PPI continue 5. Depression with anxiety ? Patient is on bupropion as well as paroxetine did continue 6. Rheumatoid arthritis ? Patient is on methotrexate 22.5 mg p.o. q. weekly plan is to resume following her discharge 7. Class II obesity with BMI of 36.5 ? Weight loss advised 8. DVT prophylaxis - On enoxaparin Time spent in the patient's overall evaluation,decision-making process, review of diagnostic data, adjustment of management, discussion with other providers, nursing nursing and ancillary staff involved in patient's care documentation, 35 Minutes Charges/Coding Visit Charges Inpatient E&M: 11568 Subs Hosp L2
--- NOTE | 2022-12-29 07:44 | PCM.PN.SRG ---
Subjective Subjective Patient does have purulent drainage from the previous I&D site. Objective Data Objective Data Vital Signs: Vital Signs Temp Pulse Resp BP Pulse Ox O2 Del Method 98.0 F 74 16 108/56 L 95 Room Air 12/29/22 05:21 12/29/22 05:21 12/29/22 05:21 12/29/22 05:21 12/29/22 05:21 12/29/22 05:21 Oxygen Delivery Method Room Air Weight: 199 lb 8.293 oz Body Mass Index (BMI) 36.5 Intake & Output: Intake and Output for Last 24 Hours 12/27/22 12/28/22 12/29/22 23:59 23:59 23:59 Intake Total 1112 / 1112 2826 / 2826 1062 / 1062 Balance 1112 / 1112 2826 / 2826 1062 / 1062 Lab / Micro Data Result Diagrams: 12/29/22 06:40 12/29/22 06:40 Labs: Laboratory Results - last 24 hr 12/29/22 06:40: WBC 8.3, RBC 4.10 L, Hgb 12.1, Hct 36.5 L, MCV 89.0, MCH 29.5, MCHC 33.2, RDW Std Deviation 39.9, RDW Coeff of Kelsy 12.4, Plt Count 210, MPV 9.8, Immature Gran % (Auto) 0.400, Neut % (Auto) 73.2 H, Lymph % (Auto) 15.6 L, Tyrrell % (Auto) 7.9, Eos % (Auto) 2.5, Baso % (Auto) 0.4, Absolute Neuts (auto) 6.1, Absolute Lymphs (auto) 1.30, Nucleated RBC % 0 12/29/22 06:40: Sodium 139, Potassium 4.1, Chloride 107, Carbon Dioxide 27.0, Anion Gap 5, BUN 16, Creatinine 0.97, Estim Creat Clear Calc 50.61, Est GFR (MDRD) Af Amer 76, Est GFR (MDRD) Non-Af 63, BUN/Creatinine Ratio 16.6, Glucose 101, Calcium 8.7, Magnesium 2.0 Micro: Microbiology 12/28/22 10:50 Aspirate - Groin Gram Stain - Final Physical Exam Const oriented x3 and no apparent distress Extremity Extremity Narrative: Right medial gluteal erythema less angry red still firm. Purulent drainage from I&D site Assessment & Plan Assessment/Plan (1) Abscess, gluteal, right: PLAN: Plan We will continue broad-spectrum antibiotics. We will continue to monitor closely patient did have purulent drainage. Wound is being irrigated with 20 to 40 cc of saline at each packing change 3 times daily. Patient still aware that there is still possibility of needing to go to the OR for further incision and debridement we will continue to monitor closely. Currently it does appear that the area is improving and is not quite as angry red as previous. White blood cell count within normal limits --continue broad-spectrum antibiotics-vancomycin, Zosyn, clindamycin all IV. Kathy Anderson M.D. Pager: [phone] [facility] [address] [place] [address], [address] [place] [address] Office: [phone] Charges/Coding Visit Charges Inpatient E&M: 19458 Subs Hosp L2
--- NOTE | 2022-12-29 08:06 | WOUNDNOTE ---
Dr Anderson had been in to assess the right perineal abscess.I&D site was irrigated with 20cc's NS per Dr Anderson and an iodoform wick was placed. covered with dry dressing and ABD pad. pt tolerated well. the redness to the right buttock slightly extended past the skin markings. the overall redness has lightened per Dr Anderson.
[2022-12-29 08:08] VITALS: BP 110/70; PULSE 68; RESP 18; TEMP 36.6; O2SAT 95
[2022-12-29] MEDS: Folic Acid 1 MG Tablet PO (08:12)
[2022-12-29] MEDS: Senna/Docusate Sodium 1 Tablet 2 TABLET PO (08:18)
[2022-12-29] MEDS: 0.9% Saline Lock 10 ML Syringe IV (08:32)
[2022-12-29] MEDS: Pantoprazole Sodium 40 MG Tablet PO (10:08)
[2022-12-29] MEDS: Enoxaparin 40 MG/0.4 ML Syringe SC (10:08)
[2022-12-29] MEDS: buPROPion (XL) 150 MG TABLET.XL PO (10:09)
[2022-12-29] MEDS: Cholecalciferol (VIT D3) 25 MCG TABLET (1,000 UNITS) PO (10:09)
[2022-12-29] MEDS: Paroxetine 20 MG Tablet 40 MG PO (10:09)
[2022-12-29] MEDS: Vancomycin IV 1,000 MG/200 ML BAG 200 MG IV (11:29)
[2022-12-29 12:05] LABS: Vancomycin, Trough Level 12.3 ug/mL (5.0-15.0)
--- NOTE | 2022-12-29 12:38 | PCM.RX.CS ---
Consult Pharmacy has been consulted to manage selected antiobiotic: Vancomycin Type of Consult: Follow-up Suspected Infection: Skin/Soft tissue Labs: Sodium 139 mmol/L (136-145) 12/29/22 06:40 Potassium 4.1 mmol/L (3.5-5.1) 12/29/22 06:40 Chloride 107 mmol/L (98-107) 12/29/22 06:40 Carbon Dioxide 27.0 mmol/L (21.0-32.0) 12/29/22 06:40 Anion Gap 5 (5-15) 12/29/22 06:40 BUN 16 mg/dL (7-18) 12/29/22 06:40 Creatinine 0.97 mg/dL (0.55-1.02) 12/29/22 06:40 Est GFR (MDRD) Af Amer 76 mL/min (>60) 12/29/22 06:40 Est GFR (MDRD) Non-Af 63 mL/min (>60) 12/29/22 06:40 BUN/Creatinine Ratio 16.6 RATIO (10-20) 12/29/22 06:40 Glucose 101 mg/dL (74-106) 12/29/22 06:40 Vancomycin Trough 12.3 ug/mL (5.0-15.0) 12/29/22 11:10 Microbiology: Microbiology 12/28/22 10:50 Aspirate - Groin Gram Stain - Final 12/28/22 10:50 Aspirate - Groin Wound Culture - Preliminary No growth-Final to follow Goal Trough: 15-20 mcg/mL Pharmacy Plan for Drug Dosing: VANCOMYCIN LEVEL RECEIVED Current Vancomycin Dose: 1000mg q12h (at 1130,2230) Number of Doses Received: x1 loading dose, x2 1000mg doses Vancomycin Level: 12.3 Hours Since Last Dose: 12 hours since last dose Renal Function: SrCr 0.97 Renal Function Trend: SrCr improving (was 1.28 on 12/27/22) Lab/Micro: Vancomycin Plan/Comments: resulted trough of 12.3 is below the ordered goal trough range of 15-20. recommend increasing dose to 1250mg q12h and checking trough prior to the 4th dose Pending Level: 12/31/22 at 1030 Pharmacy Service will continue to monitor and adjust dosing as required. Follow-Up Labs: Trough Vancomycin - 12/31/22 at 1030
[2022-12-29] MEDS: Clindamycin in 0.9% Sod Chlor 600 MG/50 ML BAG 100 MG IV ×2 (13:27→17:57)
[2022-12-29 14:54] VITALS: BP 131/79; PULSE 84; RESP 18; TEMP 36.6; O2SAT 100
[2022-12-29] MEDS: Juven (unflavored) Packet 1 PACKET PO (17:18)
[2022-12-29 21:23] VITALS: BP 114/56; PULSE 63; RESP 18; TEMP 36.6; O2SAT 96
[2022-12-30] MEDS: Clindamycin in 0.9% Sod Chlor 600 MG/50 ML BAG 100 MG IV ×4 (00:01→17:06)
[2022-12-30 03:55] VITALS: BP 110/68; PULSE 64; RESP 18; TEMP 36.6; O2SAT 98
[2022-12-30] MEDS: Acetaminophen 325 MG Tablet 650 MG PO (04:24)
[2022-12-30 06:33] LABS: Absolute Lymphocyte Count 1.36 X10^3/uL (0.83-4.51); Absolute Neutrophil Count 4.2 X10^3/uL (2.0-7.7); Basophil# 0.04 X10^3/uL; Basophil% 0.6 % (0-1); Eosinophil# 0.21 X10^3/uL; Eosinophils% 3.3 % (0-5); Hemoglobin 11.5 g/dL (12.0-15.0); Lymphocyte # 1.36 X10^3/ul (0.83-4.51); Lymphocyte % 21.4 % (19-41); Mean Corp Hgb Conc 32.9 g/dL (32-36); Mean Corpuscular Volume 88.4 fL (81-99); Mean Platelet Vol. 9.9 fl (6.2-12.0); Monocyte# 0.51 X10^3/uL; NRBC Flagged by Analyzer 0 % (0-5); Neutrophil # 4.21 X10^3/uL (2.7-7.7); Neutrophil % 66.2 % (47-70); Platelet Count 221 K/mm3 (150-450); RBC Distribution Width CV 12.3 % (11.6-14.6); RBC Distribution Width SD 39.6 fl (35.1-43.9); Red Blood Count 3.96 M/mm3 (4.2-5.4); White Blood Count 6.4 K/mm3 (4.4-11.0)
[2022-12-30 07:16] LABS: Anion Gap 5 (5-15); BUN 14 mg/dL (7-18); BUN/Creat Ratio 16.3 RATIO (10-20); Calcium,Total 8.9 mg/dL (8.5-10.1); Chloride 108 mmol/L (98-107); Creatinine, Serum 0.86 mg/dL (0.55-1.02); EST Glomerular Filtration Rate 72 mL/min (>60); Est Glom Filt Rate - Afr Amer 88 mL/min (>60); Estimated Creatinine Clearance 57.08 ml/min; Glucose 95 mg/dL (74-106); Potassium 3.7 mmol/L (3.5-5.1); Sodium Level 141 mmol/L (136-145)
[2022-12-30 07:45] VITALS: O2SAT 95
--- NOTE | 2022-12-30 07:51 | PN.SURG_ITS ---
Subjective Subjective Patient states pain is little bit better. White blood count still within normal limits on antibiotics. Objective Data Objective Data Vital Signs: Vital Signs Temp Pulse Resp BP Pulse Ox O2 Del Method 97.9 F 64 18 110/68 95 Room Air 12/30/22 03:55 12/30/22 03:55 12/30/22 03:55 12/30/22 03:55 12/30/22 07:45 12/30/22 07:45 Oxygen Delivery Method Room Air Weight: 199 lb 8.293 oz Body Mass Index (BMI) 36.5 Intake & Output: Intake and Output for Last 24 Hours 12/28/22 12/29/22 12/30/22 23:59 23:59 23:59 Intake Total 3076 / 3076 2823.75 / 2823.75 324 / 324 Balance 3076 / 3076 2823.75 / 2823.75 324 / 324 Lab / Micro Data Result Diagrams: 12/30/22 06:15 12/30/22 06:15 Labs: Laboratory Results - last 24 hr 12/29/22 11:10: Vancomycin Trough 12.3 12/30/22 06:15: WBC 6.4, RBC 3.96 L, Hgb 11.5 L, Hct 35.0 L, MCV 88.4, MCH 29.0, MCHC 32.9, RDW Std Deviation 39.6, RDW Coeff of Kelsy 12.3, Plt Count 221, MPV 9.9, Immature Gran % (Auto) 0.500, Neut % (Auto) 66.2, Lymph % (Auto) 21.4, Russell % (Auto) 8.0, Eos % (Auto) 3.3, Baso % (Auto) 0.6, Absolute Neuts (auto) 4.2, Absolute Lymphs (auto) 1.36, Nucleated RBC % 0 12/30/22 06:15: Sodium 141, Potassium 3.7, Chloride 108 H, Carbon Dioxide 28.0, Anion Gap 5, BUN 14, Creatinine 0.86, Estim Creat Clear Calc 57.08, Est GFR (MDRD) Af Amer 88, Est GFR (MDRD) Non-Af 72, BUN/Creatinine Ratio 16.3, Glucose 95, Calcium 8.9 Micro: Microbiology 12/28/22 10:50 Aspirate - Groin Gram Stain - Final 12/28/22 10:50 Aspirate - Groin Wound Culture - Preliminary No growth-Final to follow Physical Exam Const oriented x3 and no apparent distress Extremity Extremity Narrative: Right medial gluteal erythema much improved still indurated. 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 We will continue to monitor closely patient did have purulent drainage. Wound is being irrigated with 20 to 40 cc of saline at each packing change 3 times daily. Patient still aware that there is still possibility of needing to go to the OR for further incision and debridement we will continue to monitor closely-- okay to go back to regular diet today. Erythema improving still has induration at the inferior right gluteal. White blood cell count within normal limits --continue broad-spectrum antibiotics-vancomycin, Unasyn, clindamycin all IV. Kathy Anderson M.D. Pager: [phone] [facility] [address] [place] [address], [address] [place] [address] Office: [phone]
--- NOTE | 2022-12-30 08:04 | PCM.PN.HOSP ---
Reason for Visit Reason for Visit: Diagnoses Cutaneous abscess of buttock (12/27/22) Cellulitis of groin (12/27/22) Subjective Subjective Patient reports being down after receiving news of passing of her mother. Pain remains controlled. Cultures pending Objective Data Objective Data Vital Signs: Vital Signs Temp Pulse Resp BP Pulse Ox O2 Del Method 97.9 F 64 18 110/68 95 Room Air 12/30/22 03:55 12/30/22 03:55 12/30/22 03:55 12/30/22 03:55 12/30/22 07:45 12/30/22 07:45 Oxygen Delivery Method Room Air Weight: 90.5 kg Body Mass Index (BMI) 36.5 Intake & Output: Intake and Output for Last 24 Hours 12/28/22 12/29/22 12/30/22 23:59 23:59 23:59 Intake Total 3076 / 3076 2823.75 / 2823.75 324 / 324 Balance 3076 / 3076 2823.75 / 2823.75 324 / 324 Lab / Micro Data Result Diagrams: 12/30/22 06:15 12/30/22 06:15 Labs: Laboratory Results - last 24 hr 12/29/22 11:10: Vancomycin Trough 12.3 12/30/22 06:15: WBC 6.4, RBC 3.96 L, Hgb 11.5 L, Hct 35.0 L, MCV 88.4, MCH 29.0, MCHC 32.9, RDW Std Deviation 39.6, RDW Coeff of Kelsy 12.3, Plt Count 221, MPV 9.9, Immature Gran % (Auto) 0.500, Neut % (Auto) 66.2, Lymph % (Auto) 21.4, [place] % (Auto) 8.0, Eos % (Auto) 3.3, Baso % (Auto) 0.6, Absolute Neuts (auto) 4.2, Absolute Lymphs (auto) 1.36, Nucleated RBC % 0 12/30/22 06:15: Sodium 141, Potassium 3.7, Chloride 108 H, Carbon Dioxide 28.0, Anion Gap 5, BUN 14, Creatinine 0.86, Estim Creat Clear Calc 57.08, Est GFR (MDRD) Af Amer 88, Est GFR (MDRD) Non-Af 72, BUN/Creatinine Ratio 16.3, Glucose 95, Calcium 8.9 Micro: Microbiology 12/28/22 10:50 Aspirate - Groin Gram Stain - Final 12/28/22 10:50 Aspirate - Groin Wound Culture - Preliminary No growth-Final to follow Physical Exam Narrative GENERAL: cooperative HEENT: Atraumatic; normocephalic EYES; Anicteric, Normal Conjunctiva NECK; supple, normal thyroid, RESPIRATORY: Diminished to auscultation CARDIOVASCULAR: Regular S1 S2, GI: soft, normoactive bowel sounds, : No Renal angle tenderness; EXTREMITIES: No edema, no clubbing, MUSCULOSKELETAL: no muscle wasting NEURO: Awake; no lateralizing signs. PSYCH; Flat affect Assessment & Plan Assessment/Plan (1) Cellulitis of groin, right: (2) Abscess, gluteal, right: PLAN: Plan Patient is a 57 who presented with significant swelling involving the right groin 1.? Right gluteal abscess ? CT of the pelvis obtained on admission demonstrated medial right buttock soft tissue inflammatory changes and skin thickening suggesting cellulitis. No drainable abscess.? Patient started on broad-spectrum antibiotic therapy with Unasyn with vancomycin added..? Consult was placed to surgery with plans for patient to undergo I&D 12/29/2022; Patient underwent?incision and drainage of right gluteal abscess by Dr. Anderson on 12/28/2022 under local anesthesia.? Cultures sent ? 12/30/2021 postoperative day 2 following patient procedure culture still pending 2.? Acute kidney injury ? Creatinine on admission was 1.23 improved to 0.91 with IV fluids 3. Mild hyponatremia ? Improved with rehydration 4.? GERD ? Patient is on PPI continue 5.? Depression with anxiety ? Patient is on bupropion as well as paroxetine did continue 6.? Rheumatoid arthritis ? Patient is on methotrexate 22.5 mg p.o. q. weekly plan is to resume following her discharge 7.? Class II obesity with BMI of 36.5 ? Weight loss advised 8.? DVT prophylaxis - On enoxaparin Time spent in the patient's overall evaluation,decision-making process, review of diagnostic data, adjustment of management, discussion with other providers, nursing nursing and ancillary staff involved in patient's care documentation,? 35 Minutes Charges/Coding Visit Charges Inpatient E&M: 48366 Subs Hosp L2
[2022-12-30 09:55] VITALS: BP 120/63; PULSE 72; RESP 18; TEMP 37; O2SAT 96
[2022-12-30] MEDS: buPROPion (XL) 150 MG TABLET.XL PO (10:00)
[2022-12-30] MEDS: Folic Acid 1 MG Tablet PO (10:00)
[2022-12-30] MEDS: Enoxaparin 40 MG/0.4 ML Syringe SC (10:00)
[2022-12-30] MEDS: Cholecalciferol (VIT D3) 25 MCG TABLET (1,000 UNITS) PO (10:00)
[2022-12-30] MEDS: Juven (unflavored) Packet 1 PACKET PO ×2 (10:01→17:43)
[2022-12-30] MEDS: Pantoprazole Sodium 40 MG Tablet PO (10:01)
[2022-12-30] MEDS: Paroxetine 20 MG Tablet 40 MG PO (10:01)
[2022-12-30] MEDS: 0.9% Saline Lock 10 ML Syringe IV (12:45)
[2022-12-30 14:30] VITALS: BP 112/68; PULSE 70; RESP 18; TEMP 37; O2SAT 98
--- NOTE | 2022-12-30 14:33 | WOUNDNOTE ---
In to reassess the right perineal wound. there is still some redness and induration noted. does continue to improve. the redness to the right buttock is greatly improved. small amount of purulence drainage noted with removal of the wick. irrigated with 40cc's NS. repacked with iodoform gauze and covered with dry dressing. pt tolerated well.
[2022-12-30 21:00] VITALS: BP 118/66; PULSE 76; RESP 18; TEMP 36.9; O2SAT 98
[2022-12-31] MEDS: Clindamycin in 0.9% Sod Chlor 600 MG/50 ML BAG 100 MG IV ×2 (02:00→06:29)
[2022-12-31 03:18] VITALS: BP 123/75; PULSE 67; RESP 18; TEMP 36.9; O2SAT 99
--- NOTE | 2022-12-31 07:08 | PN.HOSP_ITS ---
Reason for Visit Reason for Visit: Diagnoses Elevated white blood cell count, unspecified (12/27/22) Cutaneous abscess of buttock (12/27/22) Cellulitis of groin (12/27/22) Subjective Subjective Patient's wound cultures so far positive for Actinomyces turicensis. Consult placed to infectious disease to advise on antibiotic management Objective Data Objective Data Vital Signs: Vital Signs Temp Pulse Resp BP Pulse Ox O2 Del Method 98.4 F 67 18 123/75 H 99 Room Air 12/31/22 03:18 12/31/22 03:18 12/31/22 03:18 12/31/22 03:18 12/31/22 03:18 12/31/22 03:18 Oxygen Delivery Method Room Air Weight: 90.5 kg Body Mass Index (BMI) 36.5 Intake & Output: Intake and Output for Last 24 Hours 12/29/22 12/30/22 12/31/22 23:59 23:59 23:59 Intake Total 2823.75 / 2823.75 1273.5 / 1273.5 549 / 549 Balance 2823.75 / 2823.75 1273.5 / 1273.5 549 / 549 Lab / Micro Data Result Diagrams: 12/31/22 06:17 12/31/22 06:17 Labs: Laboratory Results - last 24 hr 12/30/22 06:15: Sodium 141, Potassium 3.7, Chloride 108 H, Carbon Dioxide 28.0, Anion Gap 5, BUN 14, Creatinine 0.86, Estim Creat Clear Calc 57.08, Est GFR (MDRD) Af Amer 88, Est GFR (MDRD) Non-Af 72, BUN/Creatinine Ratio 16.3, Glucose 95, Calcium 8.9 Micro: Microbiology 12/28/22 10:50 Aspirate - Groin Gram Stain - Final 12/28/22 10:50 Aspirate - Groin Wound Culture - Preliminary Gram positive ana 12/27/22 21:10 Blood Culture (Wb) - Right Forearm Blood Culture - Prelimi nary No growth in 48 hours. 12/27/22 20:50 Blood Culture (Wb) - Anticubital Left Blood Culture - Preliminary No growth in 48 hours. Physical Exam Narrative GENERAL: cooperative HEENT: Atraumatic; normocephalic EYES; Anicteric, Normal Conjunctiva NECK; supple, normal thyroid, RESPIRATORY: Diminished to auscultation CARDIOVASCULAR: Regular S1 S2, GI: soft, normoactive bowel sounds, : No Renal angle tenderness; EXTREMITIES: No edema, no clubbing, MUSCULOSKELETAL: no muscle wasting NEURO: Awake; no lateralizing signs. PSYCH; Flat affect Assessment & Plan Assessment/Plan (1) Cellulitis of groin, right: (2) Abscess, gluteal, right: PLAN: Plan Patient is a 57 who presented with significant swelling involving the right groin 1.? Right gluteal abscess ? CT of the pelvis obtained on admission demonstrated medial right buttock soft tissue inflammatory changes and skin thickening suggesting cellulitis. No drainable abscess.? Patient started on broad-spectrum antibiotic therapy with Unasyn with vancomycin added..? Consult was placed to surgery with plans for patient to undergo I&D 12/29/2022; Patient underwent?incision and drainage of right gluteal abscess by Dr. Anderson on 12/28/2022 under local anesthesia.? Cultures sent ? 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 Consult placed to infectious disease to advise on antibiotic management 2.? Acute kidney injury ? Creatinine on admission was 1.23 improved to 0.91 with IV fluids 3. Mild hyponatremia ? Improved with rehydration 4.? GERD ? Patient is on PPI continue 5.? Depression with anxiety ? Patient is on bupropion as well as paroxetine did continue 6.? Rheumatoid arthritis ? Patient is on methotrexate 22.5 mg p.o. q. weekly plan is to resume following her discharge 7.? Class II obesity with BMI of 36.5 ? Weight loss advised 8.? DVT prophylaxis - On enoxaparin Time spent in the patient's overall evaluation,decision-making process, review of diagnostic data, adjustment of management, discussion with other providers, nursing nursing and ancillary staff involved in patient's care documentation,? 35 Minutes Charges/Coding Visit Charges Inpatient E&M: 92468 Subs Hosp L2
[2022-12-31 07:10] LABS: Absolute Neutrophil Count 3.8 X10^3/uL (2.0-7.7); Basophil# 0.05 X10^3/uL; Basophil% 0.8 % (0-1); Eosinophil# 0.26 X10^3/uL; Eosinophils% 4.4 % (0-5); Hematocrit 34.6 % (37-47); Hemoglobin 11.2 g/dL (12.0-15.0); Lymphocyte % 23.5 % (19-41); Mean Corp Hgb Conc 32.4 g/dL (32-36); Mean Corpuscular Hgb 28.6 pg (27.0-32.0); Mean Corpuscular Volume 88.5 fL (81-99); Mean Platelet Vol. 11.4 fl (6.2-12.0); Monocyte% 6.7 % (0-10); NRBC Flagged by Analyzer 0 % (0-5); Neutrophil # 3.81 X10^3/uL (2.7-7.7); Neutrophil % 64.1 % (47-70); POSITIVE COUNT YES; RBC Distribution Width CV 12.5 % (11.6-14.6); RBC Distribution Width SD 39.4 fl (35.1-43.9); Red Blood Count 3.91 M/mm3 (4.2-5.4)
[2022-12-31 07:13] LABS: Differential Indicated SCAN CRITERIA MET
[2022-12-31 07:19] LABS: Anion Gap 9 (5-15); BUN 19 mg/dL (7-18); BUN/Creat Ratio 19.7 RATIO (10-20); Calcium,Total 8.6 mg/dL (8.5-10.1); Chloride 108 mmol/L (98-107); Creatinine, Serum 0.97 mg/dL (0.55-1.02); EST Glomerular Filtration Rate 63 mL/min (>60); Est Glom Filt Rate - Afr Amer 76 mL/min (>60); Estimated Creatinine Clearance 50.61 ml/min; Glucose 123 mg/dL (74-106); Potassium 3.9 mmol/L (3.5-5.1); Sodium Level 141 mmol/L (136-145)
--- NOTE | 2022-12-31 07:39 | PCM.PN.SRG ---
Subjective Subjective Patient states area does feel better. Objective Data Objective Data Vital Signs: Vital Signs Temp Pulse Resp BP Pulse Ox O2 Del Method 98.4 F 67 18 123/75 H 99 Room Air 12/31/22 03:18 12/31/22 03:18 12/31/22 03:18 12/31/22 03:18 12/31/22 03:18 12/31/22 03:18 Oxygen Delivery Method Room Air Weight: 199 lb 8.293 oz Body Mass Index (BMI) 36.5 Intake & Output: Intake and Output for Last 24 Hours 12/29/22 12/30/22 12/31/22 23:59 23:59 23:59 Intake Total 2823.75 / 2823.75 1273.5 / 1273.5 549 / 549 Balance 2823.75 / 2823.75 1273.5 / 1273.5 549 / 549 Lab / Micro Data Result Diagrams: 12/31/22 06:17 12/31/22 06:17 Labs: Laboratory Results - last 24 hr 12/31/22 06:17: WBC 6.0, RBC 3.91 L, Hgb 11.2 L, Hct 34.6 L, MCV 88.5, MCH 28.6, MCHC 32.4, RDW Std Deviation 39.4, RDW Coeff of Kelsy 12.5, Plt Count 186, MPV 11.4, Immature Gran % (Auto) 0.500, Neut % (Auto) 64.1, Lymph % (Auto) 23.5, [place] % (Auto) 6.7, Eos % (Auto) 4.4, Baso % (Auto) 0.8, Absolute Neuts (auto) 3.8, Absolute Lymphs (auto) 1.40, Nucleated RBC % 0 12/31/22 06:17: Sodium 141, Potassium 3.9, Chloride 108 H, Carbon Dioxide 24.0, Anion Gap 9, BUN 19 H, Creatinine 0.97, Estim Creat Clear Calc 50.61, Est GFR (MDRD) Af Amer 76, Est GFR (MDRD) Non-Af 63, BUN/Creatinine Ratio 19.7, Glucose 123 H, Calcium 8.6 Micro: Microbiology 12/28/22 10:50 Aspirate - Groin Gram Stain - Final 12/28/22 10:50 Aspirate - Groin Wound Culture - Final Actinomyces turicensis 12/27/22 21:10 Blood Culture (Wb) - Right Forearm Blood Culture - Preliminary No growth in 48 hours. 12/27/22 20:50 Blood Culture (Wb) - Anticubital Left Blood Culture - Preliminary No growth in 48 hours. Physical Exam Const oriented x3 and no apparent distress Extremity Extremity Narrative: Right medial gluteal erythema much improved still indurated. 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 Erythema does appear to to be much improved still has a bit of induration we will check ultrasound of the area to make sure there is no other fluid collections that are able to be drained. White blood cell count within normal limits --continue broad-spectrum antibiotics-vancomycin, Unasyn, clindamycin all IV. Kathy Anderson M.D. Pager: [phone] [facility] [address] [place] [address], [address] [place] [address] Office: [phone]
[2022-12-31 08:04] LABS: Differential Comment SCANNED; Platelet Estimate ADEQUATE (ADEQ)
[2022-12-31] MEDS: Juven (unflavored) Packet 1 PACKET PO ×2 (08:22→17:42)
[2022-12-31] MEDS: Folic Acid 1 MG Tablet PO (08:23)
[2022-12-31] MEDS: Enoxaparin 40 MG/0.4 ML Syringe SC (09:39)
[2022-12-31] MEDS: Pantoprazole Sodium 40 MG Tablet PO (09:40)
[2022-12-31] MEDS: Methotrexate 2.5 MG Tablet 22.5 MG PO (09:40)
[2022-12-31] MEDS: Paroxetine 20 MG Tablet 40 MG PO (09:40)
[2022-12-31 09:41] VITALS: BP 139/84; PULSE 72; RESP 16; TEMP 36.7; O2SAT 95
[2022-12-31] MEDS: Cholecalciferol (VIT D3) 25 MCG TABLET (1,000 UNITS) PO (09:41)
[2022-12-31] MEDS: buPROPion (XL) 150 MG TABLET.XL PO (09:41)
--- NOTE | 2022-12-31 11:00 | CON.PCM.ID_ITS ---
Assessment & Plan Assessment/Plan (1) Abscess, gluteal, right: PLAN: Now s/p OR 12/28/[address] Anderson. Surg cx finalized with actinomyces. On vanc/clinda/unasyn. Will stop vanc and clinda. No deeper involvement seen in OR or on CT. Plan will be for augmentin 875mg po bid for one month at discharge. Will follow, thank you (2) Cellulitis of groin, right: HPI Consult Data Date of Consult: 12/31/22 HPI Narrative Reason for Consultation: gluteal abscess HPI Narrative: KARISSA THOMPSON, is a 57 F with RA on methotrexate, presented 12/27 to ED with 5-7 days progressive R gluteal/labial pain, swelling, redness. Started like a pimple and she was able to express some pus. Sx worsened, developed some fever, fatigue, aches, loose stool. Came to ED, admitted on vanc/unasyn. Taken to OR 12/28 for I&D. Clinda added. Feeling a little better. Full ROS performed and neg except as noted above. COUNT INCLUDES THE [facility] Medical History Anxiety Depression Home Medications bupropion HCl 150 mg 24 hr tablet, extended release 150 mg PO DAILY Check with primary doctor 12/27/22 [History Last Taken 12/24/22] cholecalciferol (vitamin D3) 25 mcg (1,000 unit) tablet 25 mcg PO DAILY Check with primary doctor 12/27/22 [History Last Taken 12/24/22] folic acid 1 mg tablet 1 mg PO DAILY Check with primary doctor 12/27/22 [History Last Taken 12/24/22] methotrexate sodium 2.5 mg tablet 22.5 mg PO QWEEK Check with primary doctor 03/16 [History Last Taken 12/24/22] omeprazole 40 mg capsule,delayed release 40 mg PO DAILY Check with primary doctor 12/27/22 [History Last Taken 12/24/22] paroxetine HCl 40 mg tablet 40 mg PO DAILY Check with primary doctor 12/27/22 [History Last Taken 12/24/22] Allergy/AdvReac Type Severity Reaction Status Date / Time amitriptyline AdvReac PT UNSURE Verified 12/27/22 20:11 OF REACTION codeine AdvReac Rash Verified 12/27/22 20:10 sertraline [From Zoloft] AdvReac Upset Verified 12/27/22 20:10 Stomach Family History Other Diabetes Heart disease Surgical History Hx of cholecystectomy Social History Smoking Status: Never smoker Physical Exam Const alert, oriented x3 and no apparent distress General Appearance: cooperative HEENT normocephalic and head/scalp atraumatic Eyes PERRL and EOMs intact bilaterally Neck supple and No nodes Resp normal air movement and clear to auscultation bilaterally Cardio regular rate and regular rhythm GI soft to palpation, non-tender and non-distended Extremity General Extremity: Negative for edema Skin Skin Narrative: R lower gluteal/labial swelling and induration Neuro CN's II-XII intact bilaterally Lab / Micro Data Attestation: I reviewed the patient's lab results. Result Diagrams: 12/31/22 06:17 12/31/22 06:17 Labs: Laboratory Results - last 24 hr 12/31/22 06:17: WBC 6.0, RBC 3.91 L, Hgb 11.2 L, Hct 34.6 L, MCV 88.5, MCH 28.6, MCHC 32.4, RDW Std Deviation 39.4, RDW Coeff of Kelsy 12.5, Plt Count , MPV 11.4, Immature Gran % (Auto) 0.500, Neut % (Auto) 64.1, Lymph % (Auto) 23.5, [place] % (Auto) 6.7, Eos % (Auto) 4.4, Baso % (Auto) 0.8, Absolute Neuts (auto) 3.8, Absolute Lymphs (auto) 1.40, Nucleated RBC % 0, Differential Comment SCANNED, Platelet Estimate ADEQUATE 12/31/22 06:17: Sodium 141, Potassium 3.9, Chloride 108 H, Carbon Dioxide 24.0, Anion Gap 9, BUN 19 H, Creatinine 0.97, Estim Creat Clear Calc 50.61, Est GFR (MDRD) Af Amer 76, Est GFR (MDRD) Non-Af 63, BUN/Creatinine Ratio 19.7, Glucose 123 H, Calcium 8.6 Micro: Microbiology 12/28/22 10:50 Aspirate - Groin Gram Stain - Final 12/28/22 10:50 Aspirate - Groin Wound Culture - Final Actinomyces turicensis 12/27/22 21:10 Blood Culture (Wb) - Right Forearm Blood Culture - Preliminary No growth in 48 hours. 12/27/22 20:50 Blood Culture (Wb) - Anticubital Left Blood Culture - Preliminary No growth in 48 hours.
--- NOTE | 2022-12-31 15:01 | US_ITS ---
STUDY: SUPERFICIAL ULTRASOUND - RIGHT GLUTEAL REGION REASON FOR EXAM: Female, 57 years old. Pain and swelling TECHNIQUE: A superficial ultrasound was performed with real-time and static roland-scale imaging. COMPARISON: None. FINDINGS: Sonographic evaluation of the medial right gluteal fold shows subcutaneous edema with a small collection of fluid measuring 1.2 x 1.1 x 1.1 cm. Findings could be due to inflammation but also could be posttraumatic. Close follow-up with ultrasound recommended to ensure resolution US/Ext Non Vasc Limited/Soft Tiss IMPRESSION: In the area of concern there is subcutaneous edema with a small 1.2 cm fluid collection. No hyperemia is identified. Findings could be due to recent trauma or inflammatory process. Electronically Signed: Saroj Horvath MD at 8:11 EST ,
--- NOTE | 2022-12-31 15:29 | WOUNDNOTE ---
in to reassess the wound to the right perineum. the packing had fallen out when patient used the bathroom. no purulence was expressed. wound irrigated with 40 cc's NS. still some induration noted. less overall redness. repacked wound with small iodoform wick and covered with dry dressing. pt tolerated well. plan is for ultrasound today.
[2022-12-31 15:43] VITALS: BP 147/85; PULSE 72; RESP 18; TEMP 36.6; O2SAT 97
[2022-12-31 21:28] VITALS: BP 135/76; PULSE 73; RESP 16; TEMP 36.9; O2SAT 97
[2023-01-01 05:16] VITALS: BP 127/73; PULSE 59; RESP 16; TEMP 36.9; O2SAT 97
--- NOTE | 2023-01-01 07:42 | PN.HOSP_ITS ---
Reason for Visit Reason for Visit: Diagnoses Elevated white blood cell count, unspecified (12/27/22) Cutaneous abscess of buttock (12/27/22) Cellulitis of groin (12/27/22) Subjective Subjective Patient wound cultures came back positive for actinomyces turicensis. Seen in consultation by ID recommendation is for patient to be treated with Augmentin for 1 month. Pelvic ultrasound ordered for evaluation of initial response to therapy Objective Data Objective Data Vital Signs: Vital Signs Temp Pulse Resp BP Pulse Ox O2 Del Method 98.5 F 59 L 16 127/73 H 97 Room Air 01/01/23 05:16 01/01/23 05:16 01/01/23 05:16 01/01/23 05:16 01/01/23 05:16 01/01/23 05:16 Oxygen Delivery Method Room Air Weight: 90.5 kg Body Mass Index (BMI) 36.5 Intake & Output: Intake and Output for Last 24 Hours 12/30/22 12/31/22 01/01/23 23:59 23:59 23:59 Intake Total 1273.5 / 1273.5 823 / 823 224 / 224 Balance 1273.5 / 1273.5 823 / 823 224 / 224 Lab / Micro Data Result Diagrams: 12/31/22 06:17 12/31/22 06:17 Labs: Laboratory Results - last 24 hr 12/31/22 06:17: Plt Count , Differential Comment SCANNED, Platelet Estimate ADEQUATE 12/31/22 10:30: Vancomycin Trough 17.0 H Micro: Microbiology 12/28/22 10:50 Aspirate - Groin Gram Stain - Final 12/28/22 10:50 Aspirate - Groin Wound Culture - Final Actinomyces turicensis 12/27/22 21:10 Blood Culture (Wb) - Right Forearm Blood Culture - Preliminary No growth in 48 hours. 12/27/22 20:50 Blood Culture (Wb) - Anticubital Left Blood Culture - Preliminary No growth in 48 hours. Physical Exam Narrative GENERAL: cooperative HEENT: Atraumatic; normocephalic EYES; Anicteric, Normal Conjunctiva NECK; supple, normal thyroid, RESPIRATORY: Diminished to auscultation CARDIOVASCULAR: Regular S1 S2, GI: soft, normoactive bowel sounds, : No Renal angle tenderness; EXTREMITIES: No edema, no clubbing, MUSCULOSKELETAL: no muscle wasting NEURO: Awake; no lateralizing signs. PSYCH; Flat affect Assessment & Plan Assessment/Plan (1) Cellulitis of groin, right: (2) Abscess, gluteal, right: PLAN: Plan Patient is a 57 who presented with significant swelling involving the right groin 1.? Right gluteal abscess ? CT of the pelvis obtained on admission demonstrated medial right buttock soft tissue inflammatory changes and skin thickening suggesting cellulitis. No drainable abscess.? Patient started on broad-spectrum antibiotic therapy with Unasyn with vancomycin added..? Consult was placed to surgery with plans for alicia jm to undergo I&D 12/29/2022; Patient underwent?incision and drainage of right gluteal abscess by Silvia Anderson on 12/28/2022 under local anesthesia.? Cultures sent ? 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 Consult placed to infectious disease to advise on antibiotic management ? 01/01/2022;Patient wound cultures came back positive for actinomyces turicensis. Seen in consultation by ID recommendation is for patient to be treated with Augmentin for 1 month. Pelvic ultrasound ordered for evaluation of initial response to therapy 2.? Acute kidney injury ? Creatinine on admission was 1.23 improved to 0.91 with IV fluids 3. Mild hyponatremia ? Improved with rehydration 4.? GERD ? Patient is on PPI continue 5.? Depression with anxiety ? Patient is on bupropion as well as paroxetine did continue 6.? Rheumatoid arthritis ? Patient is on methotrexate 22.5 mg p.o. q. weekly plan is to resume following her discharge 7.? Class II obesity with BMI of 36.5 ? Weight loss advised 8.? DVT prophylaxis - On enoxaparin Time spent in the patient's overall evaluation,decision-making process, review of diagnostic data, adjustment of management, discussion with other providers, nursing nursing and ancillary staff involved in patient's care documentation,? 35 Minutes Charges/Coding Visit Charges Inpatient E&M: 32357 Subs Hosp L2
[2023-01-01 07:50] VITALS: O2SAT 95
[2023-01-01] MEDS: Pantoprazole Sodium 40 MG Tablet PO (08:09)
[2023-01-01] MEDS: Paroxetine 20 MG Tablet 40 MG PO (08:09)
[2023-01-01] MEDS: Cholecalciferol (VIT D3) 25 MCG TABLET (1,000 UNITS) PO (08:09)
[2023-01-01] MEDS: Folic Acid 1 MG Tablet PO (08:09)
[2023-01-01] MEDS: buPROPion (XL) 150 MG TABLET.XL PO (08:10)
--- NOTE | 2023-01-01 08:44 | PCM.PN.SRG ---
Subjective Subjective Patient states area is feeling little bit better. Bedside ultrasound did show area of possible connecting small fluid collection. Objective Data Objective Data Vital Signs: Vital Signs Temp Pulse Resp BP Pulse Ox O2 Del Method 98.5 F 59 L 16 127/73 H 95 Room Air 01/01/23 05:16 01/01/23 05:16 01/01/23 05:16 01/01/23 05:16 01/01/23 07:50 01/01/23 07:50 Oxygen Delivery Method Room Air Weight: 199 lb 8.293 oz Body Mass Index (BMI) 36.5 Intake & Output: Intake and Output for Last 24 Hours 12/30/22 12/31/22 01/01/23 23:59 23:59 23:59 Intake Total 1273.5 / 1273.5 823 / 823 224 / 224 Balance 1273.5 / 1273.5 823 / 823 224 / 224 Lab / Micro Data Result Diagrams: 12/31/22 06:17 12/31/22 06:17 Labs: Laboratory Results - last 24 hr 12/31/22 10:30: Vancomycin Trough 17.0 H Micro: Microbiology 12/28/22 10:50 Aspirate - Groin Gram Stain - Final 12/28/22 10:50 Aspirate - Groin Wound Culture - Final Actinomyces turicensis 12/27/22 21:10 Blood Culture (Wb) - Right Forearm Blood Culture - Preliminary No growth in 48 hours. 12/27/22 20:50 Blood Culture (Wb) - Anticubital Left Blood Culture - Preliminary No growth in 48 hours. Radiography Diagnostic Testing: Radiology Impression Soft Tissue Ultrasound 12/31/22 15:01 IMPRESSION: In the area of concern there is subcutaneous edema with a small 1.2 cm fluid collection. No hyperemia is identified. Findings could be due to recent trauma or inflammatory process. Electronically Signed: Saroj Horvath MD at 8:11 EST , Physical Exam Const oriented x3 and no apparent distress Extremity Extremity Narrative: Right medial gluteal erythema much improved still indurated with some sloughing skin due to pressure. No current purulent drainage from I&D site, [employer] Assessment & Plan Assessment/Plan (1) Abscess, gluteal, right: PLAN: Plan Ultrasound showed an additional small connecting fluid collections. We will plan to aspirate 1 area and I&D another to allow this to drain better to hopefully allow the antibiotics to work better. Patient was agreeable with plan. Continue wound care --wound is being irrigated with 20 to 40 cc of saline at each packing change 3 times daily. White blood cell count within normal limits --continue broad-spectrum antibiotics-Unasyn IV--per ID and patient will be seen home with Augmentin x1 month.. Kathy Anderson M.D. Pager: [phone] [facility] [address] [place] [address], [facility], [address] [place] [address] Office: [phone] Charges/Coding Visit Charges Inpatient E&M: 70668 Subs Hosp L3
--- NOTE | 2023-01-01 08:47 | PCM.OPRPT ---
Report of Operation Date of Procedure: 01/01/23 Pre-Operative Diagnosis: Right gluteal abscess Post-Operative Diagnosis: Same Surgery/Procedure Performed:: Incision and drainage and aspiration of right gluteal abscess Description of Surgical Findings:: Ultrasound used to identify small connecting fluid collections Surgeon: Kathy Anderson Type of Anesthesia: Local Specimen's removed: Fluid sent for culture Description of Procedure: Patient's right medial inferior glue was prepped draped in usual sterile fashion with Betadine. Ultrasound was used to identify the small connecting fluid collections. The 1 area that did not seem to to the larger area was aspirated after instilling 1% lidocaine with epinephrine in the area using an 18-gauge needle. That fluid was sent for culture. The area with the connecting fluid collection and cruciate incision was made after instilling 1% lidocaine with epinephrine. The edges were cut to allow for easier packing. There was the cavity was about 2.5 centimeters deep and 1 area otherwise about a 1.5 cm. The cruciate area was packed with half-inch iodoform. Patient tolerated procedure well. We will continue wound care with flushing and packing 3 times daily. Complications none Procedures Integumentary 10xxx: [id number] Drainage of skin abscess
[2023-01-01] MEDS: oxyCODONE 5 MG Tablet PO (08:49)
[2023-01-01] MEDS: Juven (unflavored) Packet 1 PACKET PO (08:49)
--- NOTE | 2023-01-01 09:12 | WOUNDNOTE ---
Had been in this am with Dr Anderson to reassess the right buttock/perineum. Dr Anderson performed another small I&D to the right inner buttock. small amount of purulence noted. cultures sent. wound was irrigated and packed. moderate bleeding noted. new dressing applied. will continue to monitor. Pt really hoping to be discharge early am tomorrow or this evening. pt's mother's is tomorrow am.
[2023-01-01] MEDS: Enoxaparin 40 MG/0.4 ML Syringe SC (09:29)
--- NOTE | 2023-01-01 10:30 | CASEMGMT ---
Addendum entered by Rubi Hung 01/01/23 15:08: [facility] plans to see pt tomorrow between 8-9am. Added to dc instructions. They will reach out to pt karan. Addendum entered by Rubi Hung 01/01/23 14:56: LELA YANG notified by pt nurse that pt unable to complete dressing changes on own. LELA YANG into room, pt states she has another family member Kathleen Thomson [phone] who is a [employer]. She asked this RN CELIA to call her to see if she would be able to perform dressing changes. Asked if she wanted to speak to her first, pt declined. TC to Kathleen, she was very happy to help pt and states she could. Kathleen is aware that another family member is willing to do the dressing once daily and pt will have C. She states she had to pack a wound of her own in the past. Updated . Also mustve misunderstood, 's office is not open tomorrow. TC to 's office, spoke with ed Cunningham set up for Wednesday at 2:45. Added to dc instructions. Spoke with patient. She is aware that Kathleen and Lien are willing to help and she will need to coordinate the days with the [facility]. Messaged [facility] to request a visit in the morning prior to the now. TC to Lien and she states that she or Kathleen can do in the evening tomorrow. No further needs, pt ready for dc. Addendum entered by Rubi Hung 01/01/23 13:01: DC Summary attached and [facility] to [facility]. Addendum entered by Rubi Hung 01/01/23 12:34: Updated of pt availability of dressing changes and care. She would like to see pt tomorrow morning as well. Will schedule when call returned. States after a week the dressing change may be able to be decreased to daily. TC to [facility] at [facility]. She is aware that wants to see pt in the morning tomorrow and C to come after the . She states they will see her as late as possible. Addendum entered by Rubi Hung 01/01/23 12:17: LELA YANG in to pt room again, pt states she has not heard back from her niece and she is not comfortable now with her nephew's performing dressing changes. Previously charted as cousin's but it is indeed the nephew's . Pt asks this LELA YANG to call her niece Lien. TC to her at [phone]. She states she could do daily dressing changes but not twice daily. LELA YANG made pt aware. Asked pt if she could try to learn at next dressing change. Nurse Tita to work with her. TC to 's office to set up follow up appt on Wednesday after 1p after speaking with . Left message on appt line. Addendum entered by Rubi Hung 01/01/23 11:34: Received tc back from [facility], they can accept pt for care and see her tomorrow if she dc's today or Wednesday if she dc's on Wednesday. She states they can see pt two times per week. LELA YANG into pt room, asked pt if she was able to get ahold of her family. Pt states she has had other calls. She states she will call them now. She denied need for this RN CELIA to call. Pt is aware that HHC can only come twice a week. Pt again states she wants to leave the hospital for the tomorrow. Made her aware that the plan is for this to happen and dc may be today or tomorrow but it is important for the dressing changes to be set up. Pt reports the is at 11am tomorrow. Addendum entered by Rubi Hung 01/01/23 11:12: TC to [facility], spoke with [facility]. She states they are reviewing referral but will call back as soon as able with determination of acceptance. Original Note: LELA YANG into pt room to discuss dc planning. Pt mother passed and pt would like to attend tomorrow. Pt had another I&D today. Pt states she has a niece who is also a nurse that may be able to help with her cousin's . Pt states she would be interested in HHC. Currently she is not homebound, will check if she can have HHC under her PAUL. Pt states she has worked with [facility] in the past with her mom and would prefer them. She declines the need for a list of other HHC agencies currently. Pt to check with her family on dressing changes and RN CELIA will check back. Spoke with wound nurse who agrees HHC would be beneficial. Referral sent to [facility] at this time.
[2023-01-01] MEDS: 0.9% Saline Lock 10 ML Syringe IV (11:25)
--- NOTE | 2023-01-01 12:21 | PCM.DC.SUM ---
Providers Date of Admission: 12/27/22 Date of Discharge: 01/01/23 Primary Care Physician: Dr. Christine Zapata MD Consultations 12/31/22 08:24 Consult: Infectious Disease Routine Consulting Provider: Anibal Falcon Reason for Consult: Antibiotic management EMERGENT Consult: No Notified: Yes Date Notified: 12/31/22 Time Notified: 08:25 Method of Notification: Text Reason For Visit: ABSCESS OF LABIA MAJORA WITH CELLULITIS Diagnosis Discharge Diagnosis (1) Abscess, gluteal, right: Status: Acute Code(s): L02.31 - Cutaneous abscess of buttock Plan Patient is a 57 who presented with significant swelling involving the right groin 1.? Right gluteal abscess ? CT of the pelvis obtained on admission demonstrated medial right buttock soft tissue inflammatory changes and skin thickening suggesting cellulitis. No drainable abscess.? Patient started on broad-spectrum antibiotic therapy with Unasyn with vancomycin added..? Consult was placed to surgery with plans for patient to undergo I&D 12/29/2022; Patient underwent?incision and drainage of right gluteal abscess by Dr. Anderson on 12/28/2022 under local anesthesia.? Cultures sent ? 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 Consult placed to infectious disease to advise on antibiotic management ? 01/01/2022;Patient wound cultures came back positive for actinomyces turicensis. Seen in consultation by ID recommendation is for patient to be treated with Augmentin for 1 month. Pelvic ultrasound ordered for evaluation of initial response to therapy 2.? Acute kidney injury ? Creatinine on admission was 1.23 improved to 0.91 with IV fluids 3. Mild hyponatremia ? Improved with rehydration 4.? GERD ? Patient is on PPI continue 5.? Depression with anxiety ? Patient is on bupropion as well as paroxetine did continue 6.? Rheumatoid arthritis ? Patient is on methotrexate 22.5 mg p.o. q. weekly plan is to resume following her discharge 7.? Class II obesity with BMI of 36.5 ? Weight loss advised 8.? DVT prophylaxis - On enoxaparin Time spent in the patient's overall evaluation,decision-making process, review of diagnostic data, adjustment of management, discussion with other providers, nursing nursing and ancillary staff involved in patient's care documentation,? 35 Minutes Medications at Discharge Home Medications bupropion HCl 150 mg 24 hr tablet, extended release 150 mg PO DAILY Check with primary doctor 12/27/22 cholecalciferol (vitamin D3) 25 mcg (1,000 unit) tablet 25 mcg PO DAILY Check with primary doctor 12/27/22 folic acid 1 mg tablet 1 mg PO DAILY Check with primary doctor 12/27/22 methotrexate sodium 2.5 mg tablet 22.5 mg PO QWEEK Check with primary doctor 12/27/22 omeprazole 40 mg capsule,delayed release 40 mg PO DAILY Check with primary doctor 12/27/22 paroxetine HCl 40 mg tablet 40 mg PO DAILY Check with primary doctor 12/27/22 amoxicillin 875 mg-potassium clavulanate 125 mg tablet 1 tab PO BID 30 days #60 tabs 01/01/23 Hospital Course Summary of Care Provided Minutes Spent on Discharge: 35 Physical Exam Narrative GENERAL: cooperative HEENT: Atraumatic; normocephalic EYES; Anicteric, Normal Conjunctiva NECK; supple, normal thyroid, RESPIRATORY: Diminished to auscultation CARDIOVASCULAR: Regular S1 S2, GI: soft, normoactive bowel sounds, : No Renal angle tenderness; EXTREMITIES: No edema, no clubbing, MUSCULOSKELETAL: no muscle wasting NEURO: Awake; no lateralizing signs. PSYCH; Flat affect Weight / BMI Weight Weight: 90.5 kg Body Mass Index (BMI) 36.5 ABG / Lab / Microbiology Data Result Diagrams: 12/31/22 06:17 12/31/22 06:17 Microbiology: Microbiology 12/28/22 10:50 Aspirate - Groin Gram Stain - Final 12/28/22 10:50 Aspirate - Groin Wound Culture - Final Actinomyces turicensis 12/28/22 10:50 Aspirate - Groin Anaerobic Culture - Preliminary Gram Positive Cocci 12/27/22 21:10 Blood Culture (Wb) - Right Forearm Blood Culture - Preliminary No growth in 48 hours. 12/27/22 20:50 Blood Culture (Wb) - Anticubital Left Blood Culture - Preliminary No growth in 48 hours. Radiography Diagnostic Testing: Radiology Impression Soft Tissue Ultrasound 12/31/22 15:01 IMPRESSION: In the area of concern there is subcutaneous edema with a small 1.2 cm fluid collection. No hyperemia is identified. Findings could be due to recent trauma or inflammatory process. Electronically Signed: Saroj Horvath MD at 8:11 EST Reading Location ID and State: [facility] / [place] , Service support , D/C Instructions Discharge Diet: No restrictions Discharge Activity: Return to Normal Activity Call your doctor if you observe: Fever of 101 or Higher, Shortness of breath, Fainting spells and Chest pain Meaningful Use Info Meaningful Use Diagnoses (Choose all that apply): None applicable Discharge Plan Admission Admit Date/Time: 12/27/22 21:29 Attending Provider: Nolan Corona Primary Care Provider: Christine Zapata Consulting Providers: Loki Burden ; Anibal Falcon Instructions Additional Instructions / Restrictions: wound care/dressing changes: Dressing/packing change twice a day. Flush with 40cc sterile Normal Saline using syringe and sterile specimen cup. Use Iodoform for enough packing to keep the wound open. Cover with Sterile dressing and tape. To come to appointment in the office wednesday for dressing change. Discharge Orders/Prescriptions Prescriptions: New amoxicillin-pot clavulanate 875-125 mg tablet 1 tab PO BID 30 Days Qty: 60 0RF Continued omeprazole 40 mg capsule,delayed release(DR/EC) 40 mg PO DAILY Label Comments: TAKE 1 CAPSULE BY MOUTH ONCE DAILY DIRECTED methotrexate sodium 2.5 mg tablet 22.5 mg PO QWEEK Label Comments: TAKE 9 TABLETS BY MOUTH ONCE A WEEK Rx Instructions: folic acid 1 mg tablet 1 mg PO DAILY Label Comments: TAKE 1 TABLET BY MOUTH EVERY DAY paroxetine HCl 40 mg tablet 40 mg PO DAILY Label Comments: TAKE 1 TABLET BY MOUTH ONCE DAILY bupropion HCl 150 mg tablet extended release 24 hr 150 mg PO DAILY Label Comments: Take 1 tablet by mouth once daily. cholecalciferol (vitamin D3) 25 mcg (1,000 unit) tablet 25 mcg PO DAILY Label Comments: TAKE 1 TABLET BY MOUTH DAILY Referrals / Follow Up: Christine Zapata MD [Primary Care Provider] - Within 1 Week Kathy Anderson MD [Med Staff - Active Staff] - 01/11/23 8:00 am Disposition Disposition (needs filled in before D/C Order can be placed): Home Health Service Charges/Coding Visit Charges Inpatient E&M: 63018 Disch Hosp >30min
[2023-01-01 13:05] VITALS: BP 140/80; PULSE 71; RESP 16; TEMP 36.7; O2SAT 98
== END 2023-01-01 16:12 | disposition home health service (06) | DRG 603 ==
LOC: ED 21:59 → MS3 22:09
PROVIDERS: Physician Assistant; Admitting Provider Hospitalist; Emergency Provider Emergency Medicine; PCP Internal Medicine; Visit Provider Internal Medicine
DX: L02.31 Cutaneous abscess of buttock (principal); E87.1 Hypo-osmolality and hyponatremia; N17.9 Acute kidney failure, unspecified; L03.314 Cellulitis of groin; N18.31 Chronic kidney disease, stage 3a; M06.9 Rheumatoid arthritis, unspecified; D72.829 Elevated white blood cell count, unspecified; F41.8 Other specified anxiety disorders; K21.9 Gastro-esophageal reflux disease without esophagitis; L03.317 Cellulitis of buttock; E66.9 Obesity, unspecified; Z68.36 Body mass index [BMI] 36.0-36.9, adult
CPT/HCPCS: 36415; 73701; 76882; 80048; 80202; 83735; 85025; 87040; 87070; 87075; 87077; 87205; 99284; J7030; J7040; J7050; Q9967; A4216; J0295; J2405; J8610

== ENCOUNTER → 2025-08-23 | Outpatient (CLI) | payer MEDICARE, MEDICAID, SELFPAY ==
[2025-08-25 05:07] LABS: QNTFERON TB Mitogen Value > 10.00 IU/mL (.); QNTFERON TB Nil Value 0.03 IU/mL (.); QNTFERON TB1+ Ag Value 0.03 IU/mL (.); QNTFERON TB2+ Ag Value 0.03 IU/mL (.); QNTIFERON TB Positive Criteria Negative (Negative)
== END | disposition home or self-care (01) ==
LOC: MTLAB 16:08
PROVIDERS: PCP Internal Medicine; Referring Provider Physician Assistant; Visit Provider Physician Assistant
DX: L40.0 Psoriasis vulgaris (principal)
CPT/HCPCS: 36415; 86480